=== PATIENT | male | born 1955 | race Caucasian/White ===

== ENCOUNTER 2019-09-21 11:05 | Outpatient (CLI) | payer MEDICARE, BC, OTHER, SELFPAY ==
[2019-09-21 12:31] VITALS: BMI 31.1
--- NOTE | 2019-09-21 12:38 | ECG_ITS ---
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 Baseline blood pressure noted to be 162/98 Patient exercised for on a 11 min 3 sec on standard Per protocol. Maximum Heart rate achieved was 160 which was 103% of 155. Then maximum blood pressure achieved was 236/118 mmHg. Max METS 13.5 Reason for, ending this test was achieving maximum heart rate. Patient did have sob symptoms during this procedure, improved during recovery Electrocardiogram Baseline normal sinus rhythm, Old anterior IL with no ST-T changes. Exercise EKG at peak exercise reveals sinus tachycardia with equal to or more then 1mm down sloping ST changes on two contiguous leads . No significant cardiac arrhythmias noted. Conclusions 1. Electrocardiographic component of this cardiac stress test is positive for cardiac ischemia 2. Normal Heart rate response , increased blood pressure response. 3 Adequate exercise capacity 4 Clinical correlation is requested-please consider cardiac stress testing with nuclear imaging if clinically indicated Electronically Signed On 09-21-2019 17:38:27 CDT by Vi Rehman [email or web address]
[2019-09-21 13:11] VITALS: BP 147/99; PULSE 97
== END 2019-09-21 11:06 | disposition home or self-care (01) ==
LOC: CDL 11:11
PROVIDERS: Family Provider Nurse Practitioner Family; Visit Provider Nurse Practitioner Family
DX: I25.10 Atherosclerotic heart disease of native coronary artery without angina pectoris (principal); Z86.79 Personal history of other diseases of the circulatory system
CPT/HCPCS: 93017

== ENCOUNTER 2019-10-25 10:28 | Outpatient (CLI) | payer MEDICARE, BC, SELFPAY ==
--- NOTE | 2019-10-25 11:00 | USCV_ITS ---
Omar Redding Age: 63 Gender: M : 1955 Exam Date: 10/25/2019 10:54 Ordering Phys: Melissa Rehman MD ([email or web address]) Technologist: Liyah Littlejohn Exam Location: [facility] [place] Indication: ABNORMAL STRESS TEST BP: / HR: 59 Rhythm: Sinus Technical Quality: Adequate MEASUREMENTS (Male / Female) Normal Values 2D ECHO LV Diastolic Diameter PLAX 6.1 cm 4.2 - 5.9 / 3.9 - 5.3 cm LV Systolic Diameter PLAX 5.6 cm LV Chamber Size 5.2 cm IVS Diastolic Thickness 1.5 cm 0.6 - 1.0 / 0.6 - 0.9 cm IVS Systolic Thickness 1.1 cm LVPW Diastolic Thickness 1.1 cm 0.6 - 1.0 / 0.6 - 0.9 cm LVPW Systolic Thickness 1.1 cm RV Chamber Size 3.4 cm LVOT Diameter 2.0 cm LV Ejection Fraction 2D Teich 17.5 % LV Ejection Fraction MOD 2C 65.9 % LV Ejection Fraction 2C AL 66.1 % LA Diameter 5.7 cm LA Width 4.0 cm LA Height 5.3 cm RA Width 3.4 cm RA Height 4.9 cm Aorta at Sinotubular Diameter 2.9 cm M-MODE LV Diastolic Diameter MM 6.7 cm 4.2 - 5.9 / 3.9 - 5.3 cm LV Systolic Diameter MM 5.2 cm LV Ejection Fraction MM Teich 43.7 % IVS Diastolic Thickness MM 0.8 cm 0.6 - 1.0 / 0.6 - 0.9 cm IVS Systolic Thickness MM 1.0 cm LVPW Diastolic Thickness MM 1.1 cm 0.6 - 1.0 / 0.6 - 0.9 cm LVPW Systolic Thickness MM 1.9 cm RV Diastolic Diameter MM 0.9 cm Aortic Annulus Diameter 2.9 cm LA Ao Ratio MM 2.0 MV E Point Septal Separation 1.6 cm DOPPLER AV Peak Velocity 118.0 cm/s LVOT Peak Velocity 37.0 cm/s AV Area Cont Eq vti 1.0 cm squared AV Area Cont Eq pk 1.0 cm squared MV Area PHT 5.8 cm squared Mitral E to A Ratio 0.9 MV E' Velocity 7.0 cm/s Mitral E to MV E' Ratio 11.1 Mitral E to LV E' Lateral Ratio 9.8 Mitral E to LV E' Septal Ratio 12.6 TR Peak Velocity 233.5 cm/s TR Peak Gradient 21.8 mmHg TR Mean Velocity 185.6 cm/s TR Mean Gradient 14.6 mmHg TR Velocity Time Integral 82.0 cm TV Peak E Velocity 77.0 cm/s PV Peak Velocity 64.0 cm/s RV Acceleration Time 0.1 s RV Ejection Time 0.3 s RV AcT/ET 0.3 FINDINGS Left Ventricle Moderately increased left ventricular cavity size. Moderately decreased left ventricular systolic function. There appeared to be anterior, septal and apical akinesis.left ventricular ejection fraction is estimated at 39 %. Grade I/IV diastolic dysfunction (abnormal relaxation filling pattern), normal to mildly elevated filling pressures. Right Ventricle Normal right ventricular size. RVSP could not be calculated due to incomplete tricuspid regurgitation velocity profile. Right Atrium The right atrium is normal in size. Left Atrium Mildly increased left atrial size. Mitral Valve Mildly thickened mitral valve. Mitral annular calcification. No mitral valve stenosis. No mitral valve regurgitation. Aortic Valve Aortic valve sclerosis without stenosis or regurgitation. Tricuspid Valve Structurally normal tricuspid valve without significant stenosis or regurgitation. Pulmonary artery systolic pressure is normal. Pulmonic Valve Structurally normal pulmonic valve without significant stenosis. There is no pulmonic regurgitation. Pericardium Normal pericardium without effusion. Aorta Normal ascending aorta dimension. CONCLUSIONS 1-Moderately increased left ventricular cavity size. Moderately decreased left ventricular systolic function. There appeared to be anterior, septal and apical akinesis.left ventricular ejection fraction is estimated at 39 %. Grade I/IV diastolic dysfunction (abnormal relaxation filling pattern), normal to mildly elevated filling pressures. 2-Normal right ventricular size. RVSP could not be calculated due to incomplete tricuspid regurgitation velocity profile. 3-Mildly thickened mitral valve. Mitral annular calcification. No mitral valve stenosis. No mitral valve regurgitation. 4-There is no pericardial effusion. 5-Right atrial pressure is around 5 mm of mercury. 6-No significant change since the prior echocardiogram study of 01/19/2014. Melissa Rehman MD (Electronically Signed) Final Date: 29 October 2019 18:12 S
== END 2019-10-25 10:29 | disposition home or self-care (01) ==
LOC: RAD 10:35
PROVIDERS: Family Provider Nurse Practitioner Family; Visit Provider Internal Medicine Cardiovascular Disease
DX: R94.39 Abnormal result of other cardiovascular function study (principal); I51.7 Cardiomegaly; I34.8 Other nonrheumatic mitral valve disorders
CPT/HCPCS: 93306

== ENCOUNTER 2019-11-13 13:29 | Emergency (ER) | payer MEDICARE, BC, SELFPAY ==
[2019-11-13 13:37] VITALS: BP 179/96; PULSE 75; RESP 17; TEMP 36.6; O2SAT 98; BMI 30.5
== END 2019-11-13 13:45 | disposition left against medical advice (07) ==
LOC: ER 14:55
PROVIDERS: Emergency Provider Physician Assistant; PCP Nurse Practitioner Family
DX: Z53.21 Procedure and treatment not carried out due to patient leaving prior to being seen by health care provider (principal)
CPT/HCPCS: 80048; 85025; 87635; 99281

== ENCOUNTER 2019-11-16 11:40 | Observation (INO) | payer MEDICARE, BC, SELFPAY ==
[2019-11-13 14:52] LABS: Hemoglobin 15.9 g/dL (11.7-16.6); Nucleated Red Blood Cells % 0 %; Red Cell Distribution Width 13.1 % (12.1-15.1)
[2019-11-13 14:56] LABS: Basophils # 0.1 10^3/uL (0.0-0.1); Basophils % 1.2 %; Eosinophils # 0.6 10^3/uL (0.0-0.8); Eosinophils % 7.1 %; Hematocrit 49.1 % (42.0-52.0); Lymphocytes # 2.9 10^3/uL (0.8-4.8); Mean Corpuscular HGB Conc 32.4 g/dL (30.0-36.0); Mean Corpuscular Hemoglobin 30.5 pg (28.0-34.0); Mean Corpuscular Volume 94.2 fL (80-94); Mean Platelet Volume 11.4 fL (7.4-10.4); Monocytes # 0.7 10^3/uL (0.2-0.9); Monocytes % 8.6 %; Neutrophils # 4.3 10^3/uL (1.8-7.7); Platelet Count 293 10^3/cmm (130-400); Red Blood Count 5.21 10^6/uL (4.1-5.3); White Blood Count 8.6 10^3/uL (4.0-10.0)
[2019-11-13 15:24] LABS: Blood Urea Nitrogen 19 mg/dL (8-23); Calcium 9.9 mg/dL (8.5-10.5); Carbon Dioxide 27 mmol/L (22-29); Chloride 101 mmol/L (98-107); Glucose 143 mg/dL (65-115); Osmolality Calculated 291 mOsm/kg (285-295); Sodium 141 mmol/L (136-145)
[2019-11-14 15:27] LABS: Quest SARS-CoV-2 RNA NOT DETECTED (NOT DETECTED)
[2019-11-15 10:28] VITALS: BMI 31.4
[2019-11-16] VITALS (10 sets, daily range): BP systolic 136–168; BP diastolic 80–101; PULSE 60–90; RESP 16–28; TEMP 36.3–37; O2SAT 93–98
[2019-11-16] MEDS: diphenhydrAMINE 50 mg Capsule PO (08:19)
--- NOTE | 2019-11-16 08:30 | XACV_ITS ---
Ht: 168 cm Wt: 88 kg BSA: 2.06 m2 Gender: Male : 1955 Any Known Allergies: Penicillins Exam Priority: Routine Procedure(s): Procedure Description: Diagnostic procedure Procedure Description: Venous Graft Catheterization Procedure Description: LEMUS Graft Catheterization Procedure Description: Coronary Angiography Diagnostic Cath Status: Elective Diagnostic Findings LM has 0% stenosis. pLAD: Severe 100% stenosis, LUCIANO: 0 flow. pCIRC: Mild 40% stenosis, LUCIANO: 3 flow. 1st OM: Severe 90% stenosis, LUCIANO: 2 flow. pRCA: Severe 99% stenosis, LUCIANO: 1 flow. mRCA: Severe 75% stenosis, LUCIANO: 1 flow. Three grafts visualized. LEMUS to dLAD: patent. SVG to 1st OM: patent. SVG to RPAV: 25% stenosis, LUCIANO: 3 flow. Coronary angiography shows right dominance. Indication for cholangiogram: Abnormal stress test/DOT physical. Conclusions There is severe coronary artery disease with three vessel disease. two grafts patent, and one graft diseased. Patient has prior CABG. Recommendations Continue current medical management and risk factor modification. Diagnostic RX Recommendation: medical therapy and/or counseling Pressures Phase:Rest AO : 170 mmHg / 92 mmHg ( 126 mmHg ) @ 5:13:00 AM 155 mmHg / 84 mmHg ( 114 mmHg ) @ 5:18:00 AM Clinical Evaluation EBL: 5mL-10mL Procedural Details Pre-Procedure Time Out. Identified patient by full name and date of as verbalized by the patient/guarantor. Does the consent match the physician's order: Yes. Accurate & Complete Informed Consent: Yes. Inpatient/Outpatient History & Physical on Chart: Yes. If H&P is completed, is and addenduem needed: Yes; If yes, is the addendum complete: Yes. Visualize and Verify Site with Patient/Guarantor: N/A. Relevant Radiology Images available: N/A. Pre-op teaching completed and patient verbalized understanding. The risks, benefits, and alternatives of sedation and/or procedure were discussed by physician. The patient agrees to continue. [facility] Clinical Fraility Score: 3: Managing Well. 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 Chest Pain Symptom Assessment: Atypical Angina. Procedure started. Cardiovascular Instability: No. Correct patient, site and procedure confirmed by cath team. Current diagnosis: Chest Pain. PERRLA. 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 Lungs clear x 5 lobes. IV Site on Arrival: 20 gauge in the left anticubital. Pre Procedural Pulses: bilateral dorsalis pedis was 3+. Pre Procedural Pulses: bilateral posterior tibial was 1+. Pre Procedural Pulses: right radial was 3+. Oxygen started at 2liters/min via nasal canula. bilateral groins was prepped with chloroprep then draped in the usual sterile fashion. right radial was prepped with chloroprep then draped in the usual sterile fashion. Physician notified. Patient's family unavailable. Equipment: 6F - Radial. Cardiac Cath Pack. ACIST Manifold Kit Model BT 2000. Heparinized Saline (2 units/mL), 1000 mL bag. Baseline sample Acquired. HR: 68 BPM. Current Diagnosis : Chest Pain. Physician arrived. Physician scrubbed in. Immediate Pre-Procedure Time Out. Correct Patient: Yes; Correct Procedure: Yes; Correct Site: Yes; Correct Patient Position: Yes; Correct Supplies: Yes; Dried Flammable Prep: Yes; Blood Products Available: N/A;. Lidocaine 1% infiltrated to the right groin. Arterial access obtained with micropuncture set. Inventory is JJ 6F 11cm Mary Grace Plus Sheath. A JJ 6F JL4 100cm Diagnostic Catheter was advanced over the wire and used for Left coronary angiography. Catheter out. A CRD 6F JR4 100cm Diagnostic Catheter was advanced over the wire and used for Right coronary angiography. Multiple views taken of left coronary artery. SVG's to OM visualized and patent. SVG's to PDA visualized and patent. LEMUS to LAD visualized. A Right femoral angiogram was performed to determine safe placement of closure device. A Perclose ([employer]) was successful obtaining hemostatsis at the Right Femoral artery insertion site. Perclose placed without complications. No signs or symptoms of hematoma noted. Sterile dressing applied per usual sterile fashion. Medication's Wasted: Lidocaine 1% = 10 mL. Medication's Wasted: Heparin = 1000 units. Total IV fluids: 300 mL. Fluoro: 4:30. Contrast type used: Omnipaque 300 mgI/mL, 500 mL bottle. [id number]. Post-op diagnosis: chest pain. Complications: none. Estimated blood loss: 5mL-10mL. Procedure completed. Post Procedure: Pulses reassessed and unchanged. No VTE prophylaxis required. PERRLA. 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 Patient transferred by bed to CPRU until ICU bed is available. Site: Right Femoral artery Sheath Size: 6 Fr Hemostasis Method: Perclose ([employer]) Hemostasis Success: Successful Procedure Medications Start: 10:03 AM Stop: 10:03 AM Medication: Versed Amount: 1 mg Route: I.V. Start: 10:03 AM Stop: 10:03 AM Medication: Fentanyl Amount: 50 mcg Route: I.V. Start: 10:14 AM Stop: 10:14 AM Medication: Versed Amount: 1 mg Route: I.V. Start: 10:14 AM Stop: 10:14 AM Medication: Fentanyl Amount: 50 mcg Route: I.V. I, the attending physician, have reviewed and verified all procedure medications. Yes, all medications given per verbal order History/Risk Factors Hypertension: Yes Dyslipidemia: Yes Peripheral Arterial Disease (PAD): No Myocardial Infarction (CT): No Obesity: No Renal Disease: No Tobacco Use: Never Prior Interventions PCI: No CABG: Yes Valve Surgery: No Report Signatures Finalized by:Melissa Rehman MD on 11/29/2019 5:58:54 PM
--- NOTE | 2019-11-16 10:30 | SUR.PHASEI ---
POST CATH NOTE/ RECOVERY NOTE Patient to CPRU-4 for recovery pending bed availability. Status post cardiac catheterization via the right femoral approach. No sheath, access was perclosed. No hematoma formation noted at this time. See v/s assessment sheet for details of assessments. Call light within reach. Informed to call for needs.
--- NOTE | 2019-11-16 12:47 | PC.NURSE ---
pt resting in bed. Complains of no pain or shortness of breath.
--- NOTE | 2019-12-06 18:23 | W.PM.OPSUD ---
Surgery/Procedure H&P Update DATE OF PROCEDURE: 11/16/2019 DATE H&P PERFORMED: 11/16/19 H&P UPDATE INFORMATION: I have reviewed H&P completed within last 30 days, I have examined patient prior to procedure and No changes to prior documentation PLANNED PROCEDURE: Operation Date: 11/16/19 08:30 Proposed Procedures p Cardiac Catheterization(Left) - Melissa Rehman MD PATIENT REASSESSED PRIOR TO SEDATION, WITH NO CHANGE NOTED: Yes PHYSICAL EXAM: alert, oriented x 3, clear to auscultation bilaterally and regular rate & rhythm AIRWAY EVAL/ANESTHESIA PLAN: normal airway, see other exam findings and ASA II
== END 2019-11-16 14:09 | disposition home or self-care (01) ==
LOC: ICU 12:36
PROVIDERS: Admitting Provider Internal Medicine Cardiovascular Disease; PCP Nurse Practitioner Family; Visit Provider Internal Medicine Cardiovascular Disease
DX: I25.10 Atherosclerotic heart disease of native coronary artery without angina pectoris (principal); Z95.1 Presence of aortocoronary bypass graft; I10 Essential (primary) hypertension; E78.5 Hyperlipidemia, unspecified
CPT/HCPCS: 12345; 80048; 85025; 87635; 93455; C1760; C1769; C1887; C1894; G0378; J1644; J2001; J2250; J3010; J7030; Q0163; Q9967

== ENCOUNTER → 2019-11-23 13:39 | Outpatient (BNVA) | payer MEDICARE, BC, SELFPAY | PROVIDERS: PCP Nurse Practitioner Family; Visit Provider Nurse Practitioner Family | DX: E78.5 Hyperlipidemia, unspecified (principal); I25.708 Atherosclerosis of coronary artery bypass graft(s), unspecified, with other forms of angina pectoris; Z95.5 Presence of coronary angioplasty implant and graft; Z98.890 Other specified postprocedural states | CPT/HCPCS: 80048 ==

== ENCOUNTER → 2021-01-28 11:24 | Outpatient (BNVA) | payer MEDICARE, BC, SELFPAY | PROVIDERS: PCP Nurse Practitioner Family; Visit Provider Nurse Practitioner Family | DX: L03.312 Cellulitis of back [any part except buttock and flank]; M25.50 Pain in unspecified joint; S30.860A Insect bite (nonvenomous) of lower back and pelvis, initial encounter; W57.XXXA Bitten or stung by nonvenomous insect and other nonvenomous arthropods, initial encounter; M10.9 Gout, unspecified | CPT/HCPCS: 84550; 85025; 86618; 86666; 86757 ==

== ENCOUNTER 2021-09-09 12:09 | Outpatient (CLI) | payer MEDICARE, BC, SELFPAY ==
--- NOTE | 2021-09-09 12:10 | ECG_ITS ---
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 EKG showed sinus rhythm, right axis deviation with [] normal ST-Ts. [] . ??? The patient exercised for 12 minutes and 1 second on a Modified Per protocol. Patient attained a maximum heart rate of [] beats per minute( [] % of the maximum predicted heart rate) with a blood pressure at the peak exercise of 174/107 mm Hg. The EKG at the peak exercise revealed []. Patient did [not have any chest pain or any significant arrhythmis with the exercise]??? During the recovery phase, there were no new changes. [] ??? Blood pressure at the end of the recovery phase was 155/88 mm Hg with a heart rate of 104 beats per minute. ??? CONCLUSION: 1. [Normal] EKG response to treadmill exercise [] 2. [No exercise-induced chest pain or cardiac arrhythmia] 3. [] exercise tolerance, attained a maximum of 13.5 METs. Maximum VO2 of 47.3 ml/kg/min. 4. Baseline [hypertension/normal blood pressure] with [hypertensive/normal] response to exercise. Electronically Signed On 09-17-2021 8:35:07 CDT by Meredith Gonzalez M.D. [id number]
[2021-09-09 12:50] VITALS: BP 155/88; PULSE 96
== END 2021-09-09 12:10 | disposition home or self-care (01) ==
LOC: CDL 12:09
PROVIDERS: PCP Nurse Practitioner Family; Visit Provider Internal Medicine Cardiovascular Disease
DX: I25.10 Atherosclerotic heart disease of native coronary artery without angina pectoris (principal); R06.02 Shortness of breath
CPT/HCPCS: 93017

== ENCOUNTER 2021-09-26 09:22 | Outpatient (CLI) | payer MEDICARE, BC, SELFPAY ==
[2021-09-26 09:56] VITALS: BMI 29.3
--- NOTE | 2021-09-26 09:56 | NMCV_ITS ---
NM jeovanny perf SPECT r/s* [id number] Omar Redding Age: 65 Gender: M : 1955 Exam Date: 09/26/2021 09:56 Ordering Phys: Meredith Gonzalez MD ([email or web address]) Technologist: RACHID Boles Exam [facility]: 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 Images obtained in supine and prone position. SPECT RESULTS Technical Quality: Excellent Raw Data Analysis: Normal Image Corrections: No attenuation or motion correction applied Summed Stress Score: 26 Summed Rest Score: 27 Summed Difference Score: 0 PERFUSION FINDINGS Large sized perfusion abnormality of severe severity of basal to apical anterior, basal to mid anteroseptal, apical septal, apical lateral apical inferior and apical hawkins on rest and stress images. FUNCTIONAL RESULTS (calculated via Gated SPECT) Stress Image LV EF (%): 31 Stress EDV (mL):249 TID: 1.04 Stress ESV (mL):172 FUNCTIONAL FINDINGS: The left ventricle is dilated. Transient Ischemia Dilatation of 1. The left ventricular ejection fraction is moderately reduced with a value of 31%. There is global hypokinesis more pronounced in anterior anteroseptal and apical hawkins. Abnormal septal motion. Markedly increased end-diastolic end-systolic volumes. IMPRESSIONS 1. Large sized fixed perfusion abnormality of severe severity of basal to apical anterior, basal to mid anteroseptal, apical septal, apical lateral apical inferior and apical hawkins. 2. The left ventricular ejection fraction is moderately reduced with a value of 31%. 3. There is global hypokinesis more pronounced in anterior anteroseptal and apical hawkins. 4. No significant coronary ischemia based on the study. Meredith Gonzalez MD (Electronically Signed) Final Date: 29 September 2021 14:03 S
--- NOTE | 2021-09-26 09:56 | ECG_ITS ---
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 Interpretive Statements NAME OF STUDY: LEXISCAN SESTAMIBI STRESS TEST INDICATION: Abnormal EKG PROCEDURE: At the baseline, the blood pressure was 128/84 mmHg, oxygen saturation 96% with a heart rate of 53 bpm. The electrocardiogram showed sinus bradycardia, normal axis. Possible old anteroseptal infarct. Nonspecific ST depression and T wave changes. The Lexiscan was infused over a period of 20 seconds. A total of 0.4 milligrams of Lexiscan was infused. The stress phase was continued for a total of 5 minutes. Heart rate at the end of the stress phase was 89 bpm, oxygen saturation 96% with a blood pressure of 151/91 mmHg. The EKG at the peak infusion revealed sinus rhythm with frequent isolated PVCs. 1/[address] depression in inferolateral leads. Sestamibi was injected 20 seconds after the Lexiscan infusion. The study was terminated due to protocol completion. Blood pressure at the end of the recovery phase was 158/92 mmHg, oxygen saturation 95% with a heart rate of 83 beats per minute. CONCLUSION: 1. Equivocal EKG changes with the LexiScan infusion due to baseline ST-T wave changes. 2. No LexiScan induced chest pain or cardiac arrhythmia. 3. Normal blood pressure and heart rate response. 4. Sestamibi/sestamibi perfusion scan pending; see separate report. Electronically Signed On 09-29-2021 12:46:21 CDT by Meredith Gonzalez M.D. [id number]
[2021-09-26 11:05] VITALS: BP 158/92; PULSE 86
[2021-09-26] MEDS: regadenoson 0.4 Mg/5 ml Syringe IVP (11:07)
== END 2021-09-26 09:23 | disposition home or self-care (01) ==
LOC: CDL 09:22
PROVIDERS: PCP Nurse Practitioner Family; Visit Provider Internal Medicine Cardiovascular Disease
DX: R94.31 Abnormal electrocardiogram [ECG] [EKG] (principal)
CPT/HCPCS: 78452; 93017; A9500; J2785

== ENCOUNTER 2022-02-11 06:59 | Outpatient (CLI) | payer MEDICARE, BC, SELFPAY ==
--- NOTE | 2022-02-11 07:15 | US_ITS ---
WS: [id number] Complete ABDOMINAL ULTRASOUND HISTORY: K76.9 - Liver disease, unspecified COMPARISON: CT 12/09/2021 Liver: 16.3 cm in length. Liver is normal size and echogenicity with no mass or intrahepatic dilatati on. Portal Vein: Normal hepatopetal flow with monophasic waveform. Gallbladder: Normally distended with no gallstones, wall thickening or pericholecystic fluid. Gallbladder wall thickness: 0.3 cm. Pancreas: Not visualized. CBD: 0.5 cm. Right kidney: 11.9 cm x 6.2 cm x 6.8 cm. No mass, cortical thickening or hydronephrosis. Left kidney: 11.2 cm x 4.7 cm x 4.7 cm. No mass, cortical thickening or hydronephrosis. Spleen: Poorly visualized spleen. Spleen is lobulated findings are consistent with a prior splenic in farct. Mild atherosclerosis aorta. No ascites. US/US abdomen complete* [id number] IMPRESSION: 1. No liver mass is identified. 2. Normal gallbladder. 3. Prior splenic infarct. 4. No ascites.
== END 2022-02-11 07:00 | disposition home or self-care (01) ==
PROVIDERS: PCP Nurse Practitioner Family; Visit Provider Nurse Practitioner Family
DX: K76.9 Liver disease, unspecified (principal)
CPT/HCPCS: 76700; 76705

== ENCOUNTER 2022-02-25 07:41 | Outpatient (CLI) | payer MEDICARE, BC, SELFPAY ==
--- NOTE | 2022-02-25 07:51 | XR_ITS ---
WS: [id number] KUB, AP view, 02/25/2022 Clinical Data: N20.0 - Calculus of kidney Comparison: CT abdomen pelvis, 12/09/2021. Findings: No abnormal intraabdominal masses are seen. There is no dilatated small bowel or evidence of obstruct ion. There are calcifications overlying the right kidney but they may be within fecal material. There is a phlebolith in the right side of the true pelvis. There is a dextroscoliosis. XR/XR KUB [id number] Impression: Possible right renal calculi.
== END 2022-02-25 07:42 | disposition home or self-care (01) ==
LOC: RAD 07:46
PROVIDERS: PCP Nurse Practitioner Family; Visit Provider Urology
DX: N20.0 Calculus of kidney (principal)
CPT/HCPCS: 74018; 81003; 99203

== ENCOUNTER → 2022-03-03 14:09 | Outpatient (BNVA) | payer MEDICARE, BC, SELFPAY | PROVIDERS: PCP Nurse Practitioner Family; Visit Provider Internal Medicine Critical Care Medicine | DX: R91.1 Solitary pulmonary nodule (principal) | CPT/HCPCS: 99203 ==

== ENCOUNTER 2022-03-17 12:56 | Outpatient (CLI) | payer MEDICARE, BC, SELFPAY ==
--- NOTE | 2022-03-17 13:03 | XRR_ITS ---
PROCEDURE INFORMATION: Exam: XR Abdomen Exam date and time: 03/17/2022 1:10 PM Age: 66 years old Clinical indication: Condition or disease; Kidney or ureter condition; Calculus (stone) in kidney; Prior surgery; Surgery type: Cabg; Additional info: julia Sena 03/17/22 @ 12:45 pm appt to follow TECHNIQUE: Imaging protocol: Radiologic exam of the abdomen. Views: Frontal supine view of the abdomen. 1 View. COMPARISON: CR XR KUB [id number] 02/25/2022 7:54 AM FINDINGS: Gastrointestinal tract: Normal. No bowel dilation. Organs: caliceal stones are present in the upper and lower pole of the right kidney measuring 7 mm, and 10.7 mm x 9.7 mm respectively. These findings were present on prior examination and appears similar Bones/joints: Unremarkable. XR/XR KUB [id number] IMPRESSION: 1. No acute GI abnormality. 2. Stable caliceal stones right kidney
== END 2022-03-17 12:57 | disposition home or self-care (01) ==
LOC: RAD 12:57
PROVIDERS: PCP Nurse Practitioner Family; Visit Provider Urology
DX: N20.0 Calculus of kidney (principal)
CPT/HCPCS: 74018; 99214

== ENCOUNTER 2022-03-23 07:12 | Day surgery (SDC) | payer MEDICARE, BC, SELFPAY ==
[2022-03-20 12:07] VITALS: BMI 27.4
[2022-03-23] VITALS (9 sets, daily range): BP systolic 138–159; BP diastolic 80–95; PULSE 51–74; RESP 16–24; TEMP 36.1–37; O2SAT 93–98
--- NOTE | 2022-03-23 05:18 | P.HPUD_ITS ---
Surgery/Procedure H&P Update DATE OF PROCEDURE: March 23, 2022 DATE H&P PERFORMED: 03/17/22 H&P UPDATE INFORMATION: I have reviewed H&P completed within last 30 days, I have examined patient prior to procedure, No changes to prior documentation and H&P is in [facility] EMR on date indicated PLANNED PROCEDURE: Operation Date: 03/23/22 08:25 Proposed Procedures p EXTRACORPOREAL SHOCKWAVE LITHOTRIPSY CYSTOSCOPY RIGHT POSSIBLE RETROGRADE URETEROSCOPY LASER [id number],N20.0(Not Applicable) - Truman Frye MD s ESWL(Not Applicable) - Truman Frye MD s Retrograde Pyelogram(Not Applicable) - Truman Frye MD s Ureteroscopy(Not Applicable) - Truman Frye MD s Ureteral Stent Placement(Not Applicable) - Truman Frye MD
--- NOTE | 2022-03-23 07:18 | XRR_ITS ---
PROCEDURE INFORMATION: Exam: XR Abdomen Exam date and time: 03/23/2022 7:23 AM Age: 66 years old Clinical indication: Screening exam; Other: Preop right eswl; Patient HX: RT. Renal stone TECHNIQUE: Imaging protocol: Radiologic exam of the abdomen. Views: Frontal supine view of the abdomen. 1 View. COMPARISON: CR XR KUB [id number] 03/17/2022 1:10 PM FINDINGS: Gastrointestinal tract: There is suggestion of mural thickening of a small-bowel loop in the left hemiabdomen. Nonobstructive bowel gas pattern. Vasculature: Phlebolith in the right hemipelvis. Bones/joints: Unremarkable. Other findings: Similar appearance of a 6 mm calcification projecting over the upper pole of the right kidney and a 9 mm calcification projecting over the lower pole of the right kidney. XR/XR KUB [id number] IMPRESSION: 1. Similar appearance of right renal calculi. 2. There is suggestion of mural thickening of a small-bowel loop in the left hemiabdomen, which may reflect a nonspecific enteritis.
--- NOTE | 2022-03-23 07:54 | ECG_ITS ---
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 Measurements Intervals [place] Rate: 54 P: 36 NC: 290 QRS: -6 QRSD: 108 T: 72 QT: 416 QTc: 397 Interpretive Statements SINUS BRADYCARDIA WITH FIRST DEGREE AV BLOCK MINIMAL VOLTAGE CRITERIA FOR LVH, CONSIDER NORMAL VARIANT [MEETS CRITERIA IN ONE OF: R(aVL), S(V1), R(V5), R(V5/V6)+S(V1)] POSSIBLE ANTERIOR MYOCARDIAL INFARCTION , OF INDETERMINATE AGE [30 ms Q WAVE IN V3/V4, OR R < 0.2 mV IN V4] No previous ECG available for comparison Electronically Signed On 03-23-2022 18:35:21 CDT by Clint Tellez M.D. [id number]
[2022-03-23 08:00] LABS: Basophils # 0.1 10^3/uL (0.0-0.1); Eosinophils # 0.4 10^3/uL (0.0-0.8); Eosinophils % 5.7 %; Hematocrit 54.8 % (42.0-52.0); Hemoglobin 18.3 g/dL (11.7-16.6); Lymphocytes # 2.7 10^3/uL (0.8-4.8); Lymphocytes % 34.4 %; Mean Corpuscular HGB Conc 33.4 g/dL (30.0-36.0); Mean Corpuscular Hemoglobin 31.4 pg (28.0-34.0); Mean Corpuscular Volume 94.2 fl (80-94); Mean Platelet Volume 12.2 fL (7.4-10.4); Monocytes # 0.5 10^3/uL (0.2-0.9); Monocytes % 6.7 %; Neutrophils # 4.05 10^3/uL (1.8-7.7); Neutrophils % 52.1 %; Nucleated Red Blood Cells % 0 %; Platelet Count 200 10^3/cmm (130-400); Red Blood Count 5.82 10^6/uL (4.1-5.3); White Blood Count 7.8 10^3/uL (4.0-10.0)
--- NOTE | 2022-03-23 08:01 | P.ANESASSM_ITS ---
Pre-Anesthetic Assessment Height/Weight: Height 1.68 m Weight 77.111 kg Temp Pulse Resp BP Pulse Ox O2 Del Method 97.1 F L 58 L 18 148/82 98 03/23/22 07:33 03/23/22 07:33 03/23/22 07:33 03/23/22 07:33 03/23/22 07:33 03/23/22 07:33 Preop Diagnosis: Right renal calculi Operation Date: 03/23/22 08:25 Proposed Procedures p EXTRACORPOREAL SHOCKWAVE LITHOTRIPSY CYSTOSCOPY RIGHT POSSIBLE RETROGRADE URETEROSCOPY LASER 85155 07997,N20.0(Not Applicable) - Truman Frye MD s ESWL(Not Applicable) - Truman Frye MD s Retrograde Pyelogram(Not Applicable) - Truman Frye MD s Ureteroscopy(Not Applicable) - Truman Frye MD s Ureteral Stent Placement(Not Applicable) - Truman Frye MD Familial anesthetic complications: None Was Beta Kwesi taken within 24 hours: N/A Was Clonidine taken within 24 hours: N/A Last intake: Intake Last Liquid Date 03/22/22 Last Liquid Time 02:30 Last Solid Date 03/21/22 Last Solid Time 16:00 Social No alcohol and No tobacco Exam alert, oriented x 3, clear to auscultation bilaterally and regular rate & rhythm Airway Mallampati: Class II Dentition: other (missing) Pulmonary Exertional Dyspnea CV/HEM Coronary Artery Disease (cabg 2013), Congestive Heart Failure and Hypertension Ef 33% Metabolic Hyperlipidemia Anesthetic Plan ASA status: 3 Anesthesia: General Risk of > 500 ml blood loss (7ml/kg in children): No Medications/Allergies Home Medications Medication Instructions Recorded Confirmed Last Taken Type herbal drugs tab PO 11/18/20 03/17/22 Unknown History tamsulosin 0.4 mg capsule 0.4 mg PO .at bedtime #90 caps 02/26/22 03/23/22 03/21/22 Rx Allergies Allergy/AdvReac Type Severity Reaction Status Date / Time Penicillins Allergy unknown Verified 03/17/22 13:27 [facility] Anesthesia Medical History CAD (coronary artery disease) of artery bypass graft CHF NYHA class II (symptoms with moderately strenuous activities) HLD (hyperlipidemia) HTN (hypertension) Hyperlipidemia associated with type 2 diabetes mellitus LV dysfunction Surgical History History of lithotripsy Hx of right coronary artery stent placement S/P Achilles tendon repair S/P CABG x 3 S/P knee surgery Bilateral S/P shoulder surgery Bilateral Family History Mother , at age 78 History of heart bypass surgery History of partial surgical removal of colon Father History of kidney stones Other CAD (coronary artery disease) Social History Smoking and tobacco status: never smoked Alcohol intake: never Adopted: No Lives independently: Yes Household members: spouse Marital status: Current occupational status: employed and retired History of recent travel: No Data Anesthesia : 03/23/22 07:44 Short CBC 03/23/22 Range/Units 07:44 WBC 7.8 (4.0-10.0) 10^3/uL Hgb 18.3 H (11.7-16.6) g/dL Hct 54.8 H (42.0-52.0) % MCV 94.2 H (80-94) fl Plt Count 200 (130-400) 10^3/cmm Neut % (Auto) 52.1 % Neut # (Auto) 4.05 (1.8-7.7) 10^3/uL Cardiac Studies: Echocardiogram Ultrasound 10/25/19 Sestamibi Stress Test (Cardiology) 09/26
[2022-03-23] MEDS: sodium chloride 0.9% 1,000 ML 30 ML IV (08:05)
--- NOTE | 2022-03-23 08:46 | PM.OP ---
Operative Report Date of procedure: March 23, 2022 Pre-op diagnosis: Right renal calculi Post-op diagnosis: Right renal calculi Procedure done: 1. Cystoscopy, right ureteral stent placement 2. 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 Redding is a delightful 66-year-old white male who has had some intermittent right renal colicky type pain described as severe. Reminds him of previous stones. He was evaluated in [place] when he was out of state for work and was found to have a dilated collecting system with a right renal pelvic stone that was in a position of no obstruction. On follow-up here after returning back to the state the stone was seen to be in the right lower pole calyx. Initially he chose to approach this conservatively but had had at least another episode of typical renal colic and chose instead to treat it. Admitted now for ESWL with stent. Procedure: After routine preoperative evaluation examination and obtaining of informed consent he was taken to the operating suite on 03/23/2022 where general anesthesia was administered without difficulty after appropriate timeout was performed, SCDs confirmed to be functioning, preoperative antibiotics administered, beta-axel protocol confirmed. Prepped and draped in the usual sterile fashion in dorsolithotomy position paying careful attention to avoiding pressure points. 21 Sri Lankan cystoscope with 30 degree lens was introduced into the urethra meatus and advanced into the bladder to videoscopy. The bladder was systematically examined and found to be within normal limits. No stones seen. Flexible tip guidewire was then advanced up the right ureter easily into the renal pelvis and a 6 Sri [place]ankan by 26 cm double-pigtail stent was passed over the guidewire through the cystoscope into appropriate position as confirmed via fluoroscopy and cystoscopy. The bladder was drained and the scope was removed. He was then repositioned in supine position on the Dornier unit such that the stone was located at the focal point utilizing biplanar fluoroscopy with the shock head positioned posteriorly. Shockwave therapy was initiated and intensity of 1 and a rate of 60 and slowly increased. After about 300 shocks a several minute pause was conducted. The intensity was slowly increased to 8. The stone started to demonstrate change in approximately 1000 shocks. By the completion of the procedure it was fairly dramatically changed. He tolerated procedure well without complications and was awakened in the operating room and returned to the recovery room in stable condition. PLANS: 1. Anticipate discharge from outpatient surgery 2. Follow-up next week with KUB for reevaluation and possible stent removal or planning for subsequent retreatment
[2022-03-23] MEDS: levofloxacin-dextrose 5 % 500 MG/100 ML PREMIX 100 MG IV (08:55)
--- NOTE | 2022-03-23 10:18 | SUR.PHASEI ---
1010 PT TO PACU 4 PT AWAKES TO VOICE, WITH GOOD RESP EFFORT, PT TRYING TO RUB EYES AND NOSE, PT ASSISTED TO NOT RUB EYES, MONITOR SR WITH NO ECTOPY, VSS IV TO LT FA #20 WITH NS 300ML NS AT KVO RATE PER GRAVITY. , PT ID BRACELET TO RT WRIST , PT ID'D WITH 2 IDENTIFIERS, PT HAS APPROX 4 CENTIMETERS DIAMETER WITH REDNESS AND SMALL PETECHIAE NOTED. MONITOR SR WITH NO ECTOPY NOTED.BILAT SCDS ON.
[2022-03-23] MEDS: HYDROcodone-acetaminophen 5-325 mg Tablet 1 TAB PO (11:00)
--- NOTE | 2022-03-23 14:12 | ANE.PACU2 ---
Inpatient post-anesthesia follow up: Airway intact: Yes Vital signs: Temperature 97.0 F Pulse Rate 59 Respiratory Rate 16 Blood Pressure 148/80 Pulse Oximetry 96 Oxygen Delivery Me thod Room Air Oxygen Flow Rate 8 Fraction of Inspir ed Oxygen Hydration adequate: Yes Nausea and vomiting: No Pain level: 1 Mental status: Baseline
== END 2022-03-23 11:18 | disposition home or self-care (01) ==
PROVIDERS: Anesthesiology; PCP Nurse Practitioner Family; Visit Provider Urology
PROC: 0TJB8ZZ Inspection of Bladder, Via Natural or Artificial Opening Endoscopic (ICD-10-PCS; CPT 52000; principal; 2022-03-23 08:15)
PROC: (CPT 50590; 2022-03-23 08:15)
PROC: (CPT 74420; 2022-03-23 08:15)
PROC: 0TJ98ZZ Inspection of Ureter, Via Natural or Artificial Opening Endoscopic (ICD-10-PCS; CPT 52351; 2022-03-23 08:15)
PROC: (CPT 50605; 2022-03-23 08:15)
DX: N20.0 Calculus of kidney (principal); I25.10 Atherosclerotic heart disease of native coronary artery without angina pectoris; Z95.1 Presence of aortocoronary bypass graft; I11.0 Hypertensive heart disease with heart failure; I50.9 Heart failure, unspecified; E78.5 Hyperlipidemia, unspecified; Z95.5 Presence of coronary angioplasty implant and graft
CPT/HCPCS: 50590; 52332; 36415; 74018; 85025; 93005; C2625; J1100; J1956; J2405; J2704; J3010; J3490; J7030

== ENCOUNTER 2022-03-30 14:32 | Outpatient (CLI) | payer MEDICARE, BC, SELFPAY ==
--- NOTE | 2022-03-30 15:06 | XR_ITS ---
WS: [id number] Exam: XR KUB [id number] Date/Time of Exam: 03/30/2022 3:24 PM Reason For Exam: stone No bowel obstruction or free air. A right-sided ureteral catheter is in place appearing to be in appr opriate location. Calcifications are visualized over both kidneys and apparently represent known conrado l stones. No sign of organ enlargement. Bony structures are intact. Mild dextroscoliosis the lumbar s pine. Nonspecific bilateral pelvic calcifications. XR/XR KUB [id number] IMPRESSION: 1. Right-sided ureteral catheter appearing to be in satisfactory location. 2. Calcification superimpose both kidneys and apparently represent known renal stones.
== END 2022-03-30 14:33 | disposition home or self-care (01) ==
LOC: RAD 14:35
PROVIDERS: PCP Nurse Practitioner Family; Visit Provider Urology
DX: N20.0 Calculus of kidney (principal); Z96.0 Presence of urogenital implants
CPT/HCPCS: 74018; 81003; 99024

== ENCOUNTER 2022-04-07 10:30 | Outpatient (CLI) | payer MEDICARE, BC, SELFPAY ==
--- NOTE | 2022-04-07 10:30 | CT_ITS ---
WS: [id number] CT CHEST WITHOUT INTRAVENOUS CONTRAST HISTORY: Pulmonary nodule TECHNIQUE: Contiguous 5 mm axial imaging performed on the thorax. Coronal and sagittal reformats are submitted. All CT scans at [facility] use at least one of these dose optimization techniques: automated exposure control; mA and/or kV adjustment per patient size (includes targeted exams where dose is matched to clinical indication); or iterative reconstruction. CONTRAST: None DLP: 689.32 mGy.cm COMPARISON: 12/09/2021, 12/22/2011 Lungs and central airway: Recently described nodule at the LEFT lung base measures 5 mm. No change si nce 2011. There are a few additional scattered pulmonary nodules associated with the fissures. These are typically benign intrapulmonary lymph nodes. No new mass. Pleura: No effusion. Heart and pericardium: Moderately enlarged heart. No pericardial effusion. Mediastinum and judith: No adenopathy identified. Prior CABG. Vessels: Mild atherosclerosis aorta. Moderate coronary artery calcifications. Chest wall and lower neck: No soft tissue masses. Upper abdomen: Small hiatal hernia. 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 Nonobstructing calc ifications upper pole of each kidney. Osseous structures: Mild thoracic spondylitic changes. CT/CT chest wo con [id number] IMPRESSION: 1. Largest pulmonary nodule at the LEFT lung base measures 5 mm and stable sin ce 2011. 2. Additional RIGHT intrapulmonary nodules along the fissures which are statis tically benign. 3. Chronic emphysema. 4. Prior CABG.
== END 2022-04-07 10:31 | disposition home or self-care (01) ==
PROVIDERS: PCP Nurse Practitioner Family; Visit Provider Internal Medicine Critical Care Medicine
DX: R91.1 Solitary pulmonary nodule (principal); J43.9 Emphysema, unspecified; Z95.1 Presence of aortocoronary bypass graft; I25.708 Atherosclerosis of coronary artery bypass graft(s), unspecified, with other forms of angina pectoris; I11.0 Hypertensive heart disease with heart failure; I50.9 Heart failure, unspecified; E11.69 Type 2 diabetes mellitus with other specified complication; E78.5 Hyperlipidemia, unspecified
CPT/HCPCS: 71250; 99214

== ENCOUNTER 2022-04-09 07:11 | Outpatient (CLI) | payer MEDICARE, BC, SELFPAY ==
--- NOTE | 2022-04-09 07:38 | XR_ITS ---
WS: [id number] XR KUB [id number] REASON FOR EXAM: STONES FINDINGS: Properly positioned right ureteral calculus. There are multiple right intrarenal calculi. Position of these calculi altered compared to 03/30/2022 however the calculi remain intrarenal. No calculi identified along the course of the right ureteral stent. XR/XR KUB [id number] IMPRESSION: Right ureteral stent and right renal calculi as above.
== END 2022-04-09 07:12 | disposition home or self-care (01) ==
LOC: RAD 07:15
PROVIDERS: PCP Nurse Practitioner Family; Visit Provider Urology
DX: N20.1 Calculus of ureter (principal); Z96.0 Presence of urogenital implants; N20.9 Urinary calculus, unspecified; Z98.890 Other specified postprocedural states; R39.9 Unspecified symptoms and signs involving the genitourinary system; R91.8 Other nonspecific abnormal finding of lung field
CPT/HCPCS: 74018; 99024; 99213; 99214

== ENCOUNTER 2022-04-13 06:36 | Day surgery (SDC) | payer MEDICARE, BC, SELFPAY ==
[2022-04-13] VITALS (9 sets, daily range): BP systolic 132–154; BP diastolic 67–94; PULSE 54–86; RESP 17–21; TEMP 36.1–36.6; O2SAT 94–99
--- NOTE | 2022-04-13 06:57 | XR_ITS ---
WS: [id number] KUB, 04/13/2022 Clinical Data: Preop right ESWL Comparison: KUB, 04/09/2022 Findings: The right ureteral stent remains in the same position. No abnormal intraabdominal masses are seen. There is no dilatated small bowel or evidence of obstruct ion. There are multiple right renal calculi. There may be a left renal calculus. XR/XR KUB [id number] Impression: No change in right ureteral stent and right renal calculi.
--- NOTE | 2022-04-13 07:21 | ANES.PREANE2 ---
Pre-Anesthetic Assessment Height/Weight: Height 1.68 m Weight 77.111 kg Temp Pulse Resp BP Pulse Ox O2 Del Method 97.0 F L 58 L 18 141/79 97 04/13/22 07:14 04/13/22 07:14 04/13/22 07:14 04/13/22 07:14 04/13/22 07:14 04/13/22 07:14 Preop Diagnosis: Residual right renal calculus fragments Operation Date: 04/13/22 08:20 Proposed Procedures p Extracorporeal shockwave lithotripsy 43345(Not Applicable) - Truman Frye MD Familial anesthetic complications: none Was Beta Kwesi taken within 24 hours: N/A Was Clonidine taken within 24 hours: N/A Last intake: > 8hrs Social No alcohol and No tobacco Exam alert, oriented x 3, clear to auscultation bilaterally and regular rate & rhythm Airway Mallampati: Class II Dentition: chipped and other (missing) CV/HEM Coronary Artery Disease, Congestive Heart Failure (Class II, EF 31%) and Hypertension CABG in 2013, 2 patent grafts, 1 with CAD Stress test 09/23 CONCLUSION: 1. [Normal] EKG response to treadmill exercise [] 2. [No exercise-induced chest pain or cardiac arrhythmia] 3. [] exercise tolerance, attained a maximum of 13.5 METs. Maximum VO2 of 47.3 ml/kg/min. 4.? Baseline [hypertension/normal blood pressure] with [hypertensive/normal] response to exercise. sestamibi 09/23 1. Equivocal EKG changes with the LexiScan infusion due to baseline ST-T wave changes. 2. No LexiScan induced chest pain or cardiac arrhythmia. 3. Normal blood pressure and heart rate response. 4. Sestamibi/sestamibi perfusion scan pending; see separate report. Perfusion scan 09/23 IMPRESSIONS ?1. Large sized fixed perfusion abnormality of severe severity of basal to ?apical anterior, basal to mid anteroseptal, apical septal, apical lateral ?apical inferior and apical hawkins. ?2. The left ventricular ejection fraction is moderately reduced with a value of ?31%. ?3. There is global hypokinesis more pronounced in anterior anteroseptal and ?apical hawkins. ?4.? No significant coronary ischemia based on the study. kidney stones Hepatic liver nodule Anesthetic Plan ASA status: 3 Anesthesia: General Risk of > 500 ml blood loss (7ml/kg in children): No Medications/Allergies Home Medications Medication Instructions Recorded Confirmed Last Taken Type herbal drugs 1 tab PO DAILY 11/18/20 04/10/22 Unknown History tamsulosin 0.4 mg capsule 0.4 mg PO .at bedtime #90 caps 02/26/22 04/10/22 03/21/22 Rx hydrocodone 5 mg-acetaminophen 325 1 tab PO Q8H PRN pain #15 tabs 03/23/22 04/10/22 Unknown Rx mg tablet Allergies Allergy/AdvReac Type Severity Reaction Status Date / Time Penicillins Allergy unknown Verified 04/09/22 10:17 REPLACED BY [facility] Anesthesia Medical History CAD (coronary artery disease) of artery bypass graft CHF NYHA class II (symptoms with moderately strenuous activities) HLD (hyperlipidemia) HTN (hypertension) Hyperlipidemia associated with type 2 diabetes mellitus LV dysfunction Status post extracorporeal shock wave therapy Urolithiasis Surgical History History of lithotripsy Hx of right coronary artery stent placement S/P Achilles tendon repair S/P CABG x 3 S/P knee surgery Bilateral S/P shoulder surgery Bilateral S/P ureteral stent placement Family History Mother , at age 78 History of heart bypass surgery History of partial surgical removal of colon Father History of kidney stones Other CAD (coronary artery disease) Social History Smoking and tobacco status: never smoked Alcohol intake: never Adopted: No Lives independently: Yes Household members: spouse Marital status: Current occupational status: employed and retired History of recent travel: No Data Anesthesia Cardiac Studies: Echocardiogram Ultrasound 10/25/19 Sestamibi Stress Test (Cardiology) 09/26/21
--- NOTE | 2022-04-13 07:24 | W.PM.OPSUD ---
Surgery/Procedure H&P Update DATE OF PROCEDURE: April 13, 2022 DATE H&P PERFORMED: 04/09/22 H&P UPDATE INFORMATION: I have reviewed H&P completed within last 30 days, I have examined patient prior to procedure, No changes to prior documentation and H&P is in [facility] [place] on date indicated CHANGES TO PREVIOUS DOCUMENTATION: Stone fragments still present on today's KUB PREOP DIAGNOSIS: Residual right renal calculus fragments PLANNED PROCEDURE: Operation Date: 04/13/22 08:20 Proposed Procedures p Extracorporeal shockwave lithotripsy 99923(Not Applicable) - Truman Frye MD
[2022-04-13] MEDS: sodium chloride 0.9% 1,000 ML 30 ML IV (07:42)
[2022-04-13] MEDS: levofloxacin-dextrose 5 % 500 MG/100 ML PREMIX 100 MG IV (08:59)
--- NOTE | 2022-04-13 10:06 | PM.OP ---
Operative Report Date of procedure: April 13, 2022 Pre-op diagnosis: Residual right renal calculus fragments Post-op diagnosis: Residual right renal calculus fragments Procedure done: 1. 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 2500 shocks administered with good change. Brief History: Mr. Redding is a delightful 66-year-old white male with a symptomatic right renal pelvic stone migrating [id number] from the UPJ who underwent about 3 weeks ago stent placement and ESWL. The stone broke up but still had some fairly moderate size fragments felt to be marginal regarding passage. Especially in bulk the concern was potential for [place]strasse and therefore he was offered prior to stent removal a retreatment of the stone cluster versus taking the stent out. 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 Procedure: After routine preoperative evaluation examination and obtaining of informed consent he was taken to the operating suite on 04/13/2022 where general anesthesia was administered without difficulty after appropriate timeout was performed, SCDs confirmed to be functioning, preoperative antibiotics administered, beta-axel protocol confirmed. Positioned on the Dornier unit with shock head positioned posteriorly. Stone cluster was easily identified and focused upon. Shockwave therapy was initiated and intensity of 1 advanced intensity of 6. Rate was 60 throughout. After approximately 300 shocks a several minute pause was conducted. After about 1200 shocks the shock head was repositioned anteriorly. Focus was easily obtainable. The remainder of the shocks were scattered across the remaining fragments in the cluster. There was good change noted. He tolerated the procedure well without complication and was awakened in the operating room and returned to PACU in stable condition. PLANS: 1. Anticipate discharge from outpatient surgery 2. Follow-up in about 1 week for KUB and likely cystoscopy stent removal.
--- NOTE | 2022-04-13 10:40 | SUR.PHASEI ---
1040 PT AWAKE ALERT ABDOMEN SOFT IV TO RT FOREARM #20 NS 200ML NS AT KVO RATE. WRIST BAND TO LT WRIST PT ID'D WITH 2 IDENTIFIERS.
--- NOTE | 2022-04-13 13:22 | ANE.PACU2 ---
Inpatient post-anesthesia follow up: Airway intact: Yes Vital signs: Temperature 97.9 F Pulse Rate 54 Respiratory Rate 18 Blood Pressure 139/78 Pulse Oximetry 94 Oxygen Delivery Me thod Room Air Oxygen Flow Rate 8 Fraction of Inspir ed Oxygen Hydration adequate: Yes Nausea and vomiting: Yes Pain level: 1 Mental status: Baseline
== END 2022-04-13 11:49 | disposition home or self-care (01) ==
PROVIDERS: PCP Nurse Practitioner Family; Visit Provider Urology
PROC: (CPT 50590; principal; 2022-04-13 08:10)
DX: N20.0 Calculus of kidney (principal); I25.10 Atherosclerotic heart disease of native coronary artery without angina pectoris; I11.0 Hypertensive heart disease with heart failure; I50.9 Heart failure, unspecified; E78.5 Hyperlipidemia, unspecified; Z95.1 Presence of aortocoronary bypass graft; Z88.0 Allergy status to penicillin; Z96.0 Presence of urogenital implants
CPT/HCPCS: 50590; 74018; J1100; J1956; J2250; J2405; J2704; J2710; J3010; J3490; J7030

== ENCOUNTER 2022-04-21 07:17 | Outpatient (CLI) | payer MEDICARE, BC, SELFPAY ==
--- NOTE | 2022-04-21 07:23 | XR_ITS ---
WS: [id number] KUB, AP view, 04/21/2022 Clinical Data: stones Comparison: KUB, 04/13/2022. Findings: There are multiple right renal calcifications. There is no dilatated small bowel or evidence of obstr uction. No change in right ureteral stent and right renal calculi. XR/XR KUB [id number] Impression: Negative KUB.
== END 2022-04-21 07:18 | disposition home or self-care (01) ==
LOC: RAD 07:20
PROVIDERS: PCP Nurse Practitioner Family; Visit Provider Urology
DX: N20.9 Urinary calculus, unspecified (principal); Z98.890 Other specified postprocedural states
CPT/HCPCS: 74018; 81003; 99024

== ENCOUNTER 2022-04-22 08:52 | Day surgery (SDC) | payer MEDICARE, BC, SELFPAY ==
[2022-04-21 16:08] VITALS: BMI 26.6
[2022-04-22] VITALS (11 sets, daily range): BP systolic 126–141; BP diastolic 74–89; PULSE 51–63; RESP 8–21; TEMP 36.1–36.5; O2SAT 97–100
--- NOTE | 2022-04-22 | SCC_ITS ---
Procedure done: 1. Cystoscopy, removal of right ureteral stent 2. Right ureterorenoscopy, dilation of UPJ 3. Right laser lithotripsy of renal stone fragments 4. Placement of right ureteral stent (7 Moldovan by 26 cm double-pigtail without string) 124.7 seconds of fluoroscopic guidance, for a cumulative dose of 12.6 mGy, was provided to Dr. Frye by the radiology department. C-arm images of the abdomen were saved for the patient's permanent record. KTD
--- NOTE | 2022-04-22 05:58 | P.HPUD_ITS ---
Surgery/Procedure H&P Update DATE OF PROCEDURE: April 22, 2022 DATE H&P PERFORMED: 04/21/22 H&P UPDATE INFORMATION: I have reviewed H&P completed within last 30 days, I have examined patient prior to procedure, No changes to prior documentation and [place] [facility] [place] indicated PREOP DIAGNOSIS: Residual right renal calculus fragments PLANNED PROCEDURE: Operation Date: 04/22/22 10:40 Proposed Procedures p CYSTOSCOPY RIGHT URETEROSCOPY LASER STENT RETROGRADE 59210,18550-05,N20.9(Not Applicable) - Truman Frye MD s Ureteroscopy(Right) - Truman Frye MD s Laser Lithotripsy(Right) - Truman Frye MD s Ureteral Stent Placement(Right) - Truman Frye MD
--- NOTE | 2022-04-22 09:03 | SC_ITS ---
WS: [id number] INTRAOPERATIVE TECHNIQUE: 5 Spot fluoroscopic images for intraoperative purposes. FLUOROSCOPY TIME: 124.7 seconds CLINICAL INFORMATION: Right ureteroscopy FINDINGS: Moderate RIGHT hydronephrosis. Glidewires visualized in the RIGHT ureter and renal pelvis. SC/C-arm FL for Urology IMPRESSION: Images obtained for intraoperative purposes.
--- NOTE | 2022-04-22 09:17 | P.ANESASSM_ITS ---
Pre-Anesthetic Assessment Height/Weight: Height 1.7 m Weight 77.111 kg Preop Diagnosis: Digital right renal calculi fragments Operation Date: 04/22/22 10:40 Proposed Procedures p CYSTOSCOPY RIGHT URETEROSCOPY LASER STENT RETROGRADE 49997,90584-40,N20.9(Not Applicable) - Truman Frye MD s Ureteroscopy(Right) - Truman Frye MD s Laser Lithotripsy(Right) - MD olinda Cavanaugh Ureteral Stent Placement(Right) - Truman Frye MD Familial anesthetic complications: None Was Beta Kwesi taken within 24 hours: N/A Was Clonidine taken within 24 hours: N/A Last intake: > 8hrs Social No alcohol and No tobacco Exam alert, oriented x 3, clear to auscultation bilaterally and regular rate & rhythm Airway Mallampati: Class II Dentition: chipped CV/HEM Coronary Artery Disease, Congestive Heart Failure and Hypertension Hx cabg 09/23 myocardial perfusion IMPRESSIONS ?1. Large sized fixed perfusion abnormality of severe severity of basal to ?apical anterior, basal to mid anteroseptal, apical septal, apical lateral ?apical inferior and apical hawkins. ?2. The left ventricular ejection fraction is moderately reduced with a value of ?31%. ?3. There is global hypokinesis more pronounced in anterior anteroseptal and ?apical hawkins. ?4.? No significant coronary ischemia based on the study. Manager Books Conclusions ? There is severe coronary artery disease with three vessel disease. ? two grafts patent, and one graft diseased. ? Patient has prior CABG. Recommendations ? Continue current medical management and risk factor modification. Echo 10/22 CONCLUSIONS ?1-Moderately increased left ventricular cavity size. Moderately ?decreased left ventricular systolic function.? There appeared to ?be anterior, septal and apical akinesis.left ventricular ?ejection fraction is estimated at 39 %. Grade I/IV diastolic ?dysfunction (abnormal relaxation filling pattern), normal to ?mildly elevated filling pressures. ?2-Normal right ventricular size. RVSP could not be calculated ?due to incomplete tricuspid regurgitation velocity profile. ?3-Mildly thickened mitral valve. Mitral annular calcification. ?No mitral valve stenosis. No mitral valve regurgitation. ?4-There is no pericardial effusion. ?5-Right atrial pressure is around 5 mm of mercury. ?6-No significant change since the prior echocardiogram study of ?01/19/2014. 09/23 stress test CONCLUSION: 1. Equivocal EKG response to treadmill exercise given baseline ST-T wave changes. IVCD with LBBB like morphology. 2. No exercise-induced chest pain or cardiac arrhythmia. 3. Excellent exercise tolerance, attained a maximum of 13.5 METs. Maximum VO2 of 47.3 ml/kg/min. 4. Baseline normal blood pressure with normal response to exercise. 5. Chemical stress test may be considered, if clinically indicated. Metabolic Diabetes Mellitus and Hyperlipidemia Anesthetic Plan ASA status: 3 Anesthesia: General Risk of > 500 ml blood loss (7ml/kg in children): No Medications/Allergies Home Medications Medication Instructions Recorded Confirmed Last Taken Type herbal drugs 1 tab PO DAILY 11/18/20 04/22/22 04/21/22 07:00 History tamsulosin 0.4 mg capsule 0.4 mg PO .at bedtime #90 caps 02/26/22 04/22/22 04/21/22 20:00 Rx hydrocodone 5 mg-acetaminophen 325 1 tab PO Q8H PRN pain #15 tabs 03/23/22 04/21/22 Unknown Rx mg tablet Allergies Allergy/AdvReac Type Severity Reaction Status Date / Time Penicillins Allergy unknown Verified 04/21/22 07:47 COUNTS INCLUDE 234 BEDS AT THE [facility] Anesthesia Medical History CAD (coronary artery disease) of artery bypass graft CHF NYHA class II (symptoms with moderately strenuous activities) HLD (hyperlipidemia) HTN (hypertension) Hyperlipidemia associated with type 2 diabetes mellitus LV dysfunction Status post extracorporeal shock wave therapy Urolithiasis Surgical History History of lithotripsy Hx of right coronary artery stent placement S/P Achilles tendon repair S/P CABG x 3 S/P knee surgery Bilateral S/P shoulder surgery Bilateral S/P ureteral stent placement Family History Mother , at age 78 History of heart bypass surgery History of partial surgical removal of colon Father History of kidney stones Other CAD (coronary artery disease) Social History Smoking and tobacco status: never smoked Alcohol intake: never Adopted: No Lives independently: Yes Household members: spouse Marital status: Current occupational status: employed and retired History of recent travel: No Data Anesthesia Cardiac Studies: Echocardiogram Ultrasound 10/25/19 Sestamibi Stress Test (Cardiology) 09/26
[2022-04-22] MEDS: sodium chloride 0.9% 1,000 ML 30 ML IV (09:30)
[2022-04-22] MEDS: levofloxacin-dextrose 5 % 500 MG/100 ML PREMIX 100 MG IV (10:25)
--- NOTE | 2022-04-22 10:55 | SUR.OPER ---
[id number]/ml 25ml added to sterile field for right retrograde. lot [id number]. exp 12/04/24
--- NOTE | 2022-04-22 10:59 | SUR.OPER ---
omnipaque 350mgI/ml 20ml added to sterile field. lot [id number] exp 11/27/24
--- NOTE | 2022-04-22 12:11 | P.OP_ITS ---
Operative Report Date of procedure: April 22, 2022 Pre-op diagnosis: Residual right renal stone fragments status post ESWL x2 Post-op diagnosis: 1. Residual right renal stone fragments status post ESWL x2 2. Right UPJ narrowing Procedure done: 1. Cystoscopy, removal of right ureteral stent 2. Right ureterorenoscopy, dilation of UPJ 3. Right laser lithotripsy of renal stone fragments 4. Placement of right ureteral stent (7 [place] by 26 cm double-pigtail without string) Implants: Right ureteral stent Specimens removed/disposition: Very small grit/sand from stone fragmentation Pathology: Very small grit/sand from stone fragmentation Surgeon: Melva Estimated blood loss: Minimal Urine output: Not measured Complications: None Findings: Anesthesia: General Condition: Stable Disposition: PACU Intraoperative findings: * Right UPJ narrowing requiring dilation first with 6 [place] mini scope, 7 [place] ureteroscope before being able to pass the 7.5 [place] flexible ureteroscope * Stone fragments consistent with what was seen on the KUB post ESWL were identified and completely fragmented with a 200 ?m thulium superpulse laser fiber. Could not identify any other sizable fragments with calyceal inspection directly or fluoroscopic visualization Brief History: Mr. Redding is a very pleasant 66-year-old white male who recently was evaluated for intermittently symptomatic right renal pelvic stone that appeared to be migrating [id number] between the UPJ and the more proximal renal pelvis. Ultimately he elected treatment with ESWL. He had a stent placed with the first ESWL and there was good change noted but there is still fragments felt to be large enough to likely create some intermittent obstruction if the stent was removed and therefore he was treated again. The second treatment yielded smaller fragments but still the bulk was felt to be marginal on whether or not he would build to pass it without difficulty. 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 We reviewed his options which would include repeat ESWL versus endoscopy versus just taking the stent out and hoping for passage. Ultimately he chose endoscopic approach. On preop KUB there appeared to be a fairly significantly dilated renal pelvis even when the stone was in the renal pelvic area which raise the question of possible UPJ type obstruction but on at least 2 CT scans that was not clearly identified. Procedure: After routine preoperative evaluation examination and obtaining of informed consent he was taken to the operating suite on 04/22/2022 where general anesthesia was administered without difficulty after appropriate timeout was pe rformed, SCDs confirmed to be functioning, preoperative antibiotics administered, beta-axel protocol confirmed. Prepped and draped in usual sterile fashion in dorsolithotomy position paying careful attention to avoiding pressure points. 21 [place] cystoscope with 30 degree lens was introduced into urethra meatus and advanced to the bladder without difficulty. Stent was in expected position. There is minimal encrustation. Flexible tip guidewire was then passed through the scope and next to the stent up the right ureter curling in the area of the upper pole calyx. Stent was secured in grasping forceps and under fluoroscopic monitoring was easily withdrawn. The scope was removed the wire was secured to the drapes as a safety wire with a hemostat. A second wire was passed and a 38 cm ureteral access sheath was easily advanced over the guidewire under fluoroscopic monitoring to just below the UPJ. A flexible ureteroscope was then passed over the guidewire through the sheath and up to the UPJ where it became difficult to pass the scope beyond the UPJ. There did appear to be some inflammatory change there but no trauma. A right retrograde ureteropyelogram was then performed which demonstrated: Narrowing at the UPJ, dilation proximal to the narrowed area including the renal pelvis and calyceal system. Reattempted passing the scope again was unsuccessful. The wire was repassed and a 6 [place] mini scope was then advanced to the same area and was able to be utilized as a dilator and manipulated through the narrow UPJ into the renal pelvis. The 7 [place] offset semirigid ureteroscope was then passed over the wire for the same purpose. It was able to be easily passed [id number] across the UPJ. The renal pelvis was drained and then the 7.5 Fr ench flexible ureteroscope was then advanced over the wire and this time could be passed into the renal pelvis after the previous 6 [place] mini scope and 7 [place] offset scope dilation procedure described above. The calyceal system was carefully inspected with a flexible ureterorenoscope and multiple stone fragments were noted as seen on x-ray in the right lower pole and several calyces. One by one these were fragmented with a 200 ?m thulium superpulse laser fiber mostly into sand and some very very small fragments. Almost everything remaining was smaller than the tip of the 200 ?m laser fiber. Fluoroscopic monitoring showed no residual stones or could be easily identified. Careful inspection of all the calyces which appear to be complete did not show any other stone fragments. A lot of sand was flushed through the scope and some collected for analysis. The stone fragments appeared to be consistent with calcium oxalate monohydrate and were very dense. The sheath was then backloaded onto the hub of the flexible ureteroscope and the scope was withdrawn under direct visualization. There was some mild trauma the UPJ area but nothing of any concern at all. It was decided to leave a stent indwelling and this time a 7 South Korean (he had a 6 South Korean 26 previously) in order to ensure further passive dilation and healing. Again the narrowing that required dilation was after of having an a 6 [place] stent in for multiple weeks. No other findings on removal of the scope were noted. The cystoscope was then backloaded over the safety wire and a 7 [place] by 26 cm double-pigtail stent without string was easily Gay over the guidewire through the cystoscope into appropriate position as confirmed via fluoroscopy and cystoscopy. The bladder was drained. There were a few small fragments there as well. Specimens were collected, procedure was completed, and he was transported to the PACU in stable condition. PLANS: 1. Anticipate discharge from outpatient surgery 2. Maintain stent for least a couple weeks for healing of the UPJ area that required dilation 3. Follow-up at that time with a KUB and likely stent removal.
--- NOTE | 2022-04-22 12:43 | ECG_ITS ---
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 Measurements Intervals [place] Rate: 52 P: 52 DC: 271 QRS: 1 QRSD: 114 T: 113 QT: 486 QTc: 456 Interpretive Statements SINUS BRADYCARDIA WITH FIRST DEGREE AV BLOCK POSSIBLE ANTERIOR MYOCARDIAL INFARCTION , OF INDETERMINATE AGE [30 ms Q WAVE IN V3/V4, OR R < 0.2 mV IN V4] MODERATE T-WAVE ABNORMALITY, CONSIDER LATERAL ISCHEMIA [-0.1+ mV T-WAVE IN I/aVL/V5/V6] Compared to ECG 03/23/2022 07:54:56 T-wave abnormality now present Possible ischemia now present Myocardial infarct finding still present Electronically Signed On 04-22-2022 22:48:54 CDT by Jyotsna Tate M.D. [id number]
--- NOTE | 2022-04-22 13:56 | ANE.PACU2 ---
Inpatient post-anesthesia follow up: Airway intact: Yes Vital signs: Temperature 97.0 F Pulse Rate 59 Respiratory Rate 21 Blood Pressure 141/89 Pulse Oximetry 97 Oxygen Delivery Me thod Room Air Oxygen Flow Rate 6 Fraction of Inspir ed Oxygen Hydration adequate: Yes Nausea and vomiting: No Pain level: 1 Mental status: Baseline
[2022-04-26 17:44] LABS: Stone Source RENAL
== END 2022-04-22 13:45 | disposition home or self-care (01) ==
PROVIDERS: PCP Nurse Practitioner Family; Visit Provider Urology
PROC: 0TJB8ZZ Inspection of Bladder, Via Natural or Artificial Opening Endoscopic (ICD-10-PCS; CPT 52000; principal; 2022-04-22 10:30)
PROC: 0TJ98ZZ Inspection of Ureter, Via Natural or Artificial Opening Endoscopic (ICD-10-PCS; CPT 52351; 2022-04-22 10:30)
PROC: (CPT 52356; 2022-04-22 10:30)
PROC: (CPT 50605; 2022-04-22 10:30)
PROC: (CPT 52310; 2022-04-22 10:30)
DX: N20.0 Calculus of kidney (principal); I25.10 Atherosclerotic heart disease of native coronary artery without angina pectoris; I11.0 Hypertensive heart disease with heart failure; I50.9 Heart failure, unspecified; Z95.1 Presence of aortocoronary bypass graft; E78.5 Hyperlipidemia, unspecified
CPT/HCPCS: 52356; 76000; 82365; 88300; 93005; C2625; J1100; J1956; J2405; J2704; J2710; J3010; J3490; J7030

== ENCOUNTER 2022-05-06 14:04 | Outpatient (CLI) | payer MEDICARE, BC, SELFPAY ==
--- NOTE | 2022-05-06 14:18 | XR_ITS ---
WS: [id number] KUB, AP view, 05/06/2022 Clinical Data: Urolithiasis Comparison: KUB, 04/21/2022 Findings: The previous right renal calcifications may be absent or obscured by overlying fecal material. The ri ght ureteral stent remains in good position. No abnormal intraabdominal masses are seen. There is no dilatated small bowel or evidence of obstruct ion. There is a large amount of fecal material throughout the colon. XR/XR KUB [id number] Impression: 1. Right ureteral stent. 2. Right renal calcifications may be obscured by fecal material.
== END 2022-05-06 14:05 | disposition home or self-care (01) ==
LOC: RAD 14:07
PROVIDERS: PCP Nurse Practitioner Family; Visit Provider Urology
DX: N20.9 Urinary calculus, unspecified (principal); Z96.0 Presence of urogenital implants
CPT/HCPCS: 52310; 74018; 81003; 99024

== ENCOUNTER 2022-09-01 10:49 | Outpatient (CLI) | payer MEDICARE, BC, SELFPAY ==
--- NOTE | 2022-09-01 11:15 | USCV_ITS ---
Omar Redding Age: 66 Gender: M : 1955 Exam Date: 09/01/2022 11:34 Ordering Phys: Meredith Gonzalez MD ([email or web address]) Technologist: CT [place] [facility] [place]: hx of cardiomyopathy BP: 120 / 70 HR: 52 Rhythm: Sinus Technical Quality: Adequate MEASUREMENTS (Male / Female) Normal Values 2D ECHO LV Diastolic Diameter PLAX 5.9 cm 4.2 - 5.9 / 3.9 - 5.3 cm LV Systolic Diameter PLAX 4.9 cm IVS Diastolic Thickness 1.1 cm 0.6 - 1.0 / 0.6 - 0.9 cm IVS Systolic Thickness 1.2 cm LVPW Diastolic Thickness 1.2 cm 0.6 - 1.0 / 0.6 - 0.9 cm LVPW Systolic Thickness 1.6 cm LVOT Diameter 2.0 cm LV Ejection Fraction 2D Teich 33.0 % LV Ejection Fraction MOD 2C 57.2 % LV Ejection Fraction 2C AL 57.9 % LA Diameter 5.0 cm Aorta at Sinotubular Diameter 2.4 cm M-MODE Aortic Annulus Diameter 3.1 cm LA Ao Ratio MM 1.7 MV E Point Septal Separation 2.1 cm DOPPLER AV Peak Velocity 108.0 cm/s LVOT Peak Velocity 56.0 cm/s AV Area Cont Eq vti 1.6 cm squared AV Area Cont Eq pk 1.6 cm squared MV Area PHT 5.0 cm squared Mitral E to A Ratio 1.4 MV E' Velocity 44.5 cm/s Mitral E to MV E' Ratio 13.3 Mitral E to LV E' Lateral Ratio 10.3 Mitral E to LV E' Septal Ratio 18.9 TR Peak Velocity 126.0 cm/s TR Peak Gradient 6.4 mmHg TV Peak E Velocity 69.0 cm/s Right Atrial Pressure 3.0 mmHg Pulmonary Artery Systolic Pressu 9.4 mmHg RV Acceleration Time 0.1 s FINDINGS Left Ventricle Mildly dilated LV cavity with a diminished ejection fraction of 47%. Moderate diffuse hypokinesia of the septum, anteroseptum and the LV apex Right Ventricle Possibly of normal size and ejection fraction Right Atrium Mildly increased right atrial size. Left Atrium Moderately increased left atrial size. Mitral Valve Thickened mitral valve. Trace mitral valve regurgitation. Aortic Valve Minimally thickened aortic valve Tricuspid Valve No tricuspid valve regurgitation. Pulmonic Valve Pulmonic valve not well visualized. Pericardium No pericardial effusion. Aorta Normal size aortic root and proximal ascending aorta. IVC Inferior vena cava not visualized. CONCLUSIONS Mildly dilated LV cavity with a diminished ejection fraction of 47%. Moderate diffuse hypokinesia of the septum, anteroseptum and the LV apex. . Biatrial lodgment,L>R Thickened mitral valve. Trace mitral valve regurgitation. Minimally thickened aortic valve. There is no pericardial effusion. There are no intracardiac masses. Compared to the study from 10/25/2019, the LV ejection fraction has improved from 39% to 47% Dr Jyotsna Tate MD [facility] (Electronically Signed) Final Date: 02 September 2022 06:49 S
== END 2022-09-01 10:50 | disposition home or self-care (01) ==
PROVIDERS: PCP Nurse Practitioner Family; Visit Provider Internal Medicine Cardiovascular Disease
DX: I08.0 Rheumatic disorders of both mitral and aortic valves (principal)
CPT/HCPCS: 93306

== ENCOUNTER 2022-11-03 07:42 | Outpatient (CLI) | payer MEDICARE, SELFPAY ==
--- NOTE | 2022-11-03 07:52 | XR_ITS ---
WS: [id number] XR KUB [id number] REASON FOR EXAM: STONES FINDINGS: Very difficult to evaluate the presence of renal calculi due to the large amount of overlying colon c ontents. There is probably a calculus within the upper pole of the right kidney. 5 mm. Equivocal finding of calculi overlying the lower pole of the right kidney. Probable small calculus within the mid to upper left kidney. 2 mm. No other urinary tract calculi identified. No other significant abdominal abnormality. XR/XR KUB [id number] IMPRESSION: Probable bilateral upper pole renal calculi.
== END 2022-11-03 07:43 | disposition home or self-care (01) ==
LOC: RAD 07:45
PROVIDERS: PCP Nurse Practitioner Family; Visit Provider Urology
DX: N20.9 Urinary calculus, unspecified (principal); N13.5 Crossing vessel and stricture of ureter without hydronephrosis
CPT/HCPCS: 74018; 99213

== ENCOUNTER → 2022-11-05 11:04 | Outpatient (BNVA) | payer MEDICARE, BC, SELFPAY | PROVIDERS: PCP Nurse Practitioner Family; Visit Provider Internal Medicine Cardiovascular Disease | DX: Z02.4 Encounter for examination for driving license (principal); I11.0 Hypertensive heart disease with heart failure; I50.9 Heart failure, unspecified; E11.69 Type 2 diabetes mellitus with other specified complication; E78.5 Hyperlipidemia, unspecified; I25.708 Atherosclerosis of coronary artery bypass graft(s), unspecified, with other forms of angina pectoris | CPT/HCPCS: 99214 ==

== ENCOUNTER 2022-11-09 06:45 | Outpatient (CLI) | payer MEDICARE, BC, SELFPAY ==
--- NOTE | 2022-11-09 | ECG_ITS ---
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 Poor R wave progression suggesting old anteroseptal WI. 2 inversions in the high lateral leads suggesting ischemia. The baseline heart was 59 bpm with a blood pressue of 128/78 mm of Hg Lexiscan was infused over a period of 20 seconds. A total of 0.4 milligrams of Lexiscan was infused. The stress phase was continued for a total of 5 minutes. Heart rate at the end of the stress phase was 81 bpm with a blood pressure 140/86 mm of Hg. The EKG at the peak infusion revealed no significant changes. Sestamibi was injected 20 seconds after the Lexiscan infusion. Heart rate at the end of the recovery phase was 77 bpm with a blood pressure of 134/82 mm of Hg. CONCLUSION: 1. No significant EKG changes with the LexiScan infusion 2. No LexiScan induced chest pain or cardiac arrhythmia 3. Normal blood pressure and heart rate response 4. Sestamibi/sestamibi perfusion scan pending; see separate report. Electronically Signed On 11-10-2022 20:37:21 CDT by Jyotsna Tate M.D. [id number]
[2022-11-09 06:58] VITALS: BMI 28.2
--- NOTE | 2022-11-09 06:59 | NMCV_ITS ---
NM jeovanny perf SPECT r/s* [id number] Omar Redding Age: 66 Gender: M : 1955 Exam Date: 11/09/2022 07:52 Ordering Phys: Shaista Arana Technologist: RACHID Boles Exam Location: [facility] Indications: ATHEROSCLEROTIC HEART DISEASE, CORONARY ANGIOPLASTY STATUS STRESS TEST Please see separate stress test report in [facility] for full findings IMAGE PROTOCOL Rest/Stress 1 Lexiscan Day Radiopharmaceutical Dose (mCi) Administration Site Administered by Rest: Tc-99m 10.9 IV RACHID Baum Sestamibi Stress:Tc-99m 32.4 IV RACHID Baum Sestamibi Rest: 09-Nov-2022 60 Discovery 630 Stress: 09-Nov-2022 30 Discovery 630 0.4mg Lexiscan. Images obtained in supine and prone position. SPECT RESULTS Technical Quality: Excellent Raw Data Analysis: Normal Image Corrections: No attenuation or motion correction applied Summed Stress Score: 26 Summed Rest Score: 28 Summed Difference Score: 0 PERFUSION FINDINGS Moderate to severely decreased recently in the basal, mid and apical anterior, mid anteroseptal and all the apical segments. No significant reversibility was noted in these regions. With the supine SPECT imaging, there was significant reversibility in these regions. However with the prone imaging, there was no significant reversible defects. FUNCTIONAL RESULTS (calculated via Gated SPECT) Stress Image LV EF (%): 29 Stress EDV (mL):248 TID: 1.08 Stress ESV (mL):176 FUNCTIONAL FINDINGS: Segmental wall motion analysis revealed diffuse hypokinesia of the left ventricle IMPRESSIONS 1. Myocardial perfusion imaging revealing moderate area of moderate to severely decreases uptake in the anterior wall, anteroseptal and apical regions with a significant reversibility in the supine imaging, suggesting ischemia in the distribution of all 3 coronary arteries, predominantly in the distribution of the left anterior descending artery. However because of the inconsistency with the prone imaging, the reliability of this finding is questionable. 2. Markedly diminished LV ejection fraction 29%. 3. LV wall motion analysis revealing severe diffuse hypokinesia of the left ventricle. 4. Moderately dilated LV cavity. Compared to the study from 09/26/2021, there appears to be no significant change in the prone imaging. Clinical correlation is recommended. Dr Jyotsna Tate MD [facility] (Electronically Signed) Final Date: 09 Nov 2022 23:34 S
[2022-11-09] MEDS: regadenoson 0.4 Mg/5 ml Syringe IVP (08:24)
[2022-11-09 08:45] VITALS: BP 134/82; PULSE 79
== END 2022-11-09 06:46 | disposition home or self-care (01) ==
LOC: CDL 06:47
PROVIDERS: PCP Nurse Practitioner Family; Visit Provider Nurse Practitioner Family
DX: R94.39 Abnormal result of other cardiovascular function study (principal); Z95.1 Presence of aortocoronary bypass graft; I25.708 Atherosclerosis of coronary artery bypass graft(s), unspecified, with other forms of angina pectoris
CPT/HCPCS: 36415; 78452; 93017; 96374; A9500; J2785

== ENCOUNTER 2022-12-01 06:04 | Outpatient (CLI) | payer MEDICARE, BC, SELFPAY ==
[2022-12-01] VITALS (17 sets, daily range): BP systolic 102–149; BP diastolic 64–84; PULSE 51–72; RESP 12–28; TEMP 36.6–36.8; O2SAT 92–98; BMI 27.1
[2022-12-01] MEDS: aspirin 325 mg Tablet PO (06:20)
[2022-12-01] MEDS: diphenhydrAMINE 50 mg Capsule PO (06:20)
[2022-12-01 06:31] LABS: Glucose Point of Care 92 mg/dL (70-110)
[2022-12-01 06:32] LABS: Basophils # 0.1 10^3/uL (0.0-0.1); Eosinophils # 0.5 10^3/uL (0.0-0.8); Hemoglobin 17.5 g/dL (11.7-16.6); Lymphocytes # 2.9 10^3/uL (0.8-4.8); Lymphocytes % 36.8 %; Mean Corpuscular HGB Conc 32.4 g/dL (30.0-36.0); Mean Corpuscular Hemoglobin 30.3 pg (28.0-34.0); Mean Corpuscular Volume 93.4 fl (80-94); Mean Platelet Volume 11.2 fL (7.4-10.4); Monocytes # 0.6 10^3/uL (0.2-0.9); Monocytes % 8.2 %; Neutrophils # 3.75 10^3/uL (1.8-7.7); Neutrophils % 47.9 %; Nucleated Red Blood Cells % 0 %; Platelet Count 224 10^3/cmm (130-400); Red Blood Count 5.78 10^6/uL (4.1-5.3); Red Cell Distribution Width 13.2 % (12.1-15.1); White Blood Count 7.8 10^3/uL (4.0-10.0)
[2022-12-01 06:50] LABS: Blood Urea Nitrogen 19 mg/dL (8-23); Calcium 9.6 mg/dL (8.5-10.5); Carbon Dioxide 23 mmol/L (22-29); Chloride 103 mmol/L (98-107); Glomerular Filtration Rate 83.9 mL/min (90-130); Glucose 80 mg/dL (65-115); Osmolality Calculated 287 mOsm/kg (285-295); Sodium 138 mmol/L (136-145)
[2022-12-01 06:51] LABS: Anion Gap 16.2 (5-19); Potassium 4.2 mmol/L (3.5-5.1)
--- NOTE | 2022-12-01 07:00 | XACV_ITS ---
Exam Room: 2 Ht: 170 cm Wt: 78 kg BSA: 1.94 m2 Gender: Male : 1955 Any Known Allergies: Penicillins Exam Priority: Routine Procedure(s): Procedure Description: Diagnostic procedure Procedure Description: PCI procedure Procedure Description: Venous Graft Catheterization Procedure Description: LEMUS Graft Catheterization Procedure Description: Drug Eluting Coronary Stent Procedure Description: Coronary Angiography Diagnostic Cath Status: Elective Diagnostic Findings * INDICATION: Abnormal stress test/ LV dysfunction (EF 29% on stress test). * Severe [place] coronary artery disease. * Left main artery: Patent. * LAD: Ostially occluded. * Left circumflex artery: Has moderate proximally occluded. OM 1 is occluded. OM 2 is patent. Left circumflex artery is totally occluded after giving rise to OM 2. * RCA: Ostially occluded. * Bypass grafts: LEMUS to LAD: Patent. SVG to OM: Patent. SVG to RCA: Proximally graft has 40% stenosis. At the touchdown there is a 70% severe stenosis. * Coronary angiography shows right dominance. PCI Status: Elective PCI Indication: Other Interventional Findings * PROCEDURE DETAIL: We engaged SVG to RCA with JR4 guidewire. IV heparin was administered to maintain anticoagulation. 0.014 run-through guidewire was put in distal vessel. We then placed a 2.75X15 mm resolute Vazquez drug-eluting stent in SVG to RCA. At this time final angiogram was performed that showed excellent stent expansion, no residual stenosis and LUCIANO-3 flow. Guidewire and guide catheter were removed. 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 Conclusions 1. Severe [place] coronary artery disease. 2. Severe SVG to RCA stenosis at touchdown. S/p successful revascularization with DESx1. 3. Patient has prior CABG. Recommendations * Dual antiplatelet therapy with aspirin and plavix. * Outpatient cardiology follow up in 4 weeks. Interventional RX Recommendation: PCI w/o planned CABG Diagnostic RX Recommendation: PCI w/o planned CABG Anticoagulation: Heparin Pressures Phase:Rest AO : 119 / 65 ( 89 ) @ 8:55:00 AM 117 / 63 ( 86 ) @ 8:57:00 AM 118 / 60 ( 84 ) @ 9:06:00 AM Clinical Evaluation EBL: 5mL-10mL Procedural Details Procedure Consent Obtained. Pre-Procedure Time Out. Identified patient by full name and date of as verbalized by the patient/guarantor. Does the consent match the physician's order: Yes. Accurate & Complete Informed Consent: Yes. Inpatient/Outpatient History & Physical on Chart: Yes. If H&P is completed, is and addenduem needed: No. Visualize and Verify Site with Patient/Guarantor: N/A. Relevant Radiology Images available: Yes. The risks, benefits, and alternatives of sedation and/or procedure were discussed by physician. The patient agrees to continue. Procedure started. [facility] Clinical Fraility Score: 3: Managing Well. 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 Chest Pain Symptom Assessment: Typical Angina Symptoms. Cardiovascular Instability: No. Correct patient, site and procedure confirmed by cath team. PERRLA. Strong, equal hand printed circuit board assembly repairer bilaterally. Lungs clear x 5 lobes. IV Site on Arrival: 20 gauge in the right anticubital. IV Fluids: 0.9% NaCl at KVO. 0 mL infused prior to bolt labeler. Pre Procedural Pulses: bilateral dorsalis pedis was 2+. Pre Procedural Pulses: bilateral posterior tibial was 1+. Oxygen started at 2liters/min via nasal canula. bilateral groins was prepped with chloroprep then draped in the usual sterile fashion. Physician notified. Baseline sample Acquired. HR: 95 BPM. Patient's spouse in CPRU room 3. Dr. Tellez will update at the completion of the procedure. Equipment: 6F - Femoral. Cardiac Cath Pack. ACIST Manifold Kit Model BT 2000. Heparinized Saline (2 units/mL), 1000 mL bag. Kit, Micropuncture. Physician arrived. Physician scrubbed in. Immediate Pre-Procedure Time Out. Correct Patient: Yes; Correct Procedure: Yes; Correct Site: Yes; Correct Patient Position: Yes; Correct Supplies: Yes; Dried Flammable Prep: Yes; Blood Products Available: N/A;. Lidocaine 1% infiltrated to the right groin. Arterial access obtained with micropuncture set, unable to thread wire. Needle and wire out. Manual pressure being held by Dr. Tellez. Arterial access obtained with micropuncture set. A 6 malagasy JL4 catheter in over the standard J wire. Catheter removed over the standard J wire. A 5 malagasy JL4.5 catheter in over the standard J wire. Multiple views taken of left coronary artery. Catheter removed over the standard J wire. A 6 malagasy JR4 catheter in over the standard J wire. Multiple views taken of right coronary artery. Catheter redirected to the SVG. SVG's to RCA visualized. Catheter redirected to the SVG. SVG's to Circumflex visualized and patent. Catheter redirected to the LEMUS. LEMUS to LAD visualized. Catheter removed over the standard J wire. 6 malagasy JR 4 guide catheter was inserted over the standard J wire. Add inventory: co-dry box tender, endoflator, Runthrough guidewire. Runthrough guidewire was advanced through the guide catheter to lesion in the distal SVG --> RCA. Inflation Number : 1 Sherrie JONES R VAZQUEZ 2.75X15 KB -Lot Number# [id number] was prepped and advanced across the Aorta Right -> Dist RCA. The stent was deployed at 12 CHESTER for 0:24 seconds. Exp . Stent balloon out over wire. Results checked. Wire out. ACT drawn. Results 371 seconds. Therapeutic limits - pre-heparin administration 90-150 seconds and monitoring heparin during a vascular procedure >250 seconds. Guide catheter out. A Right femoral angiogram was performed to determine safe placement of closure device. A Angio-Seal VIP (St. Max) was successful obtaining hemostatsis at the Right Femoral artery insertion site. Angioseal placed without complications. No signs or symptoms of hematoma noted. Sterile dressing applied per usual sterile fashion. Lot # [id number]. Exp. 2023-05-04. Post Procedure: Pulses reassessed and unchanged. PERRLA. Strong, equal hand printed circuit board assembly repairer bilaterally. No VTE prophylaxis required. Medication's Wasted: Lidocaine 1% = 2 mL. Medication's Wasted: Heparin = 4000 Units. Total IV fluids: 48 mL. PCI Indication: CAD (without ischemic symptoms). Post-op diagnosis: S/P PCI of the distal SVG-->RCA. Complications: none. Estimated blood loss: 5mL-10mL. Responsiveness - Normal response to verbal stimuli; alert and oriented, PERRLA. Airway - Unaffected, no intervention required; spontaneous ventilation. Circulation: W/N/L, pulses unchanged. Nausea/Vomiting: No. Procedure completed. Patient transferred by bed to 1st floor. Vital chart was stopped. Access Site Site: Right Femoral artery Sheath Size: 6 Fr Hemostasis Method: Angio-Seal VIP (St. Max) Hemostasis Success: Successful Procedure Medications Start: 7:41 AM Stop: 7:41 AM Medication: Versed Amount: 1 mg Route: I.V. Start: 7:42 AM Stop: 7:42 AM Medication: Fentanyl Amount: 50 mcg Route: I.V. Start: 7:44 AM Stop: 7:44 AM Medication: Versed Amount: 1 mg Route: I.V. Start: 7:45 AM Stop: 7:45 AM Medication: Fentanyl Amount: 25 mcg Route: I.V. Start: 7:49 AM Stop: 7:49 AM Medication: Versed Amount: 1 mg Route: I.V. Start: 8:03 AM Stop: 8:03 AM Medication: Versed Amount: 1 mg Route: I.V. Start: 8:03 AM Stop: 8:03 AM Medication: Fentanyl Amount: 25 mcg Route: I.V. Start: 8:03 AM Stop: 8:03 AM Medication: Heparin Amount: 7000 units Route: I.V. I, the attending physician, have reviewed and verified all procedure medications. Yes, all medications given per verbal order History/Risk Factors Hypertension: Yes Dyslipidemia: Yes Peripheral Arterial Disease (PAD): No Myocardial Infarction (MT): No Obesity: No Renal Disease: No Tobacco Use: Never Prior Interventions PCI: No CABG: Yes Valve Surgery: No Report Signatures Finalized by Clint Tellez MD on 12/05/2022 03:09 PM
--- NOTE | 2022-12-01 07:40 | W.PM.OPSUD ---
Surgery/Procedure H&P Update DATE OF PROCEDURE: December 01, 2022 DATE H&P PERFORMED: 11/05/22 H&P UPDATE INFORMATION: I have reviewed H&P completed within last 30 days, I have examined patient prior to procedure and No changes to prior documentation PREOP DIAGNOSIS: Abnormal stress test PRIMARY INDICATION FOR PROCEDURE: Abnormal stress test PLANNED PROCEDURE: Operation Date: 12/01/22 07:00 Proposed Procedures p [facility] w/ w/o [id number] Z95.1,R94.39,I25.708(Left) - Clint Tellez M.D Possible percutanoeus coronary intervention PATIENT REASSESSED PRIOR TO SEDATION, WITH NO CHANGE NOTED: Yes PHYSICAL EXAM: alert, oriented x 3, clear to auscultation bilaterally and regular rate & rhythm AIRWAY EVAL/ANESTHESIA PLAN: normal airway, ASA III, Monitored Anesthesia, Local Anesthesia, Risks, benefits & alternatives of sedation and/or procedure discussed and Patient agrees to continue as planned ADDITIONAL INFORMATION: Moderate sedation
--- NOTE | 2022-12-01 08:25 | PC.NURSE ---
Recovery Note Pt arrived from labor specialist to CPRU 3. Pt alert and oriented, breathing even and non-labored on room air. Pt denies pain at this time. Placed on bedside court monitor. Right groin has clean and dry dressing with angioseal as closure device. Ambulation time 1220. Pedal pulses palpable. Pt and educated on activity restrictions, verbalized understanding. Call light in reach. Report called to floor nurse RAMIREZ Vazquez.
--- NOTE | 2022-12-01 09:15 | PC.NURSE ---
Pt transferred to room 106 via bed. at bedside. Bedside site check performed with RAMIREZ Vazquez. No signs of bleeding or hematoma. Right groin dressing clean, dry, and intact.
--- NOTE | 2022-12-01 09:32 | PC.NURSE ---
Patient arrives on CSU from optical laboratory mechanic.
[2022-12-02 03:49] VITALS: BP 131/71; PULSE 60; RESP 16; TEMP 36.6; O2SAT 97
[2022-12-02 04:00] LABS: Basophils # 0.1 10^3/uL (0.0-0.1); Eosinophils # 0.5 10^3/uL (0.0-0.8); Eosinophils % 6.5 %; Hematocrit 44.4 % (42.0-52.0); Hemoglobin 14.6 g/dL (11.7-16.6); Lymphocytes # 1.3 10^3/uL (0.8-4.8); Lymphocytes % 18.6 %; Mean Corpuscular HGB Conc 32.9 g/dL (30.0-36.0); Mean Corpuscular Hemoglobin 30.4 pg (28.0-34.0); Mean Corpuscular Volume 92.5 fl (80-94); Mean Platelet Volume 11.5 fL (7.4-10.4); Monocytes # 0.6 10^3/uL (0.2-0.9); Neutrophils % 64.8 %; Nucleated Red Blood Cells % 0 %; Platelet Count 189 10^3/cmm (130-400); Red Cell Distribution Width 13.2 % (12.1-15.1); White Blood Count 7.1 10^3/uL (4.0-10.0)
[2022-12-02 04:30] LABS: Blood Urea Nitrogen 22 mg/dL (8-23); Calcium 8.9 mg/dL (8.5-10.5); Carbon Dioxide 23 mmol/L (22-29); Chloride 108 mmol/L (98-107); Glomerular Filtration Rate 83.9 mL/min (90-130); Glucose 84 mg/dL (65-115); Osmolality Calculated 291 mOsm/kg (285-295); Sodium 139 mmol/L (136-145)
[2022-12-02 04:31] LABS: Anion Gap 12.1 (5-19); Potassium 4.1 mmol/L (3.5-5.1)
[2022-12-02 05:52] VITALS: PULSE 54
--- NOTE | 2022-12-02 07:28 | P.DS_ITS ---
Discharge Providers Date of Admission: December 01, 2022 Date of Discharge: December 02, 2022 Attending Provider at Admission: Clint Tellez MD Attending Provider at Discharge: Clint Tellez M.D Primary Care Provider: PAM Vance Diagnoses at Discharge Discharge Diagnosis (1) CAD (coronary artery disease) of artery bypass graft: Status: Acute Qualifiers: [place] vs. 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 Stress test was showing ischemia normal 3 coronary artery arteries. LV systolic function is also significantly decreased. He is here for coronary angiogram with possible PCI planned. Hospital Course Hospital Course Coronary angiogram showed patent LEMUS to LAD and SVG to OM. SVG to RCA had moderate proximal stenosis and severe stenosis at the touchdown. He underwent successful revascularization with KB x1 at SVG to RCA at touchdown. He was discharged home in a stable condition after monitoring overnight on aspirin and Plavix. He does not want to take statin therapy or other additional medications at this time. Physical Exam Narrative: GENERAL: Patient is alert, awake and oriented x3. [] NECK: No jugular vein distension. [] HEENT: No cyanosis. No icterus. No pallor. [] HEART: Regular S1 and S2. No murmur, rub or gallop. [] LUNGS: Clear to auscultate bilaterally. [] CENTRAL NERVOUS SYSTEM: Grossly nonfocal. [] EXTREMITIES: Lower extremities with no edema Discharge Data Studies Completed and Pending Pending at discharge Category Date Time Status SENIOR BUSINESS DEVELOPMENT MANAGER request for service Routine Exams 12/01/22 07:00 Taken Laboratory Results WBC 7.1 10^3/uL (4.0-10.0) 12/02/22 03:19 RBC 4.80 10^6/uL (4.1-5.3) 12/02/22 03:19 Hgb 14.6 g/dL (11.7-16.6) 12/02/22 03:19 Hct 44.4 % (42.0-52.0) 12/02/22 03:19 MCV 92.5 fl (80-94) 12/02/22 03:19 MCH 30.4 pg (28.0-34.0) 12/02/22 03:19 MCHC 32.9 g/dL (30.0-36.0) 12/02/22 03:19 RDW 13.2 % (12.1-15.1) 12/02/22 03:19 Plt Count 189 10^3/cmm (130-400) 12/02/22 03:19 MPV 11.5 fL (7.4-10.4) H 12/02/22 03:19 Neut % (Auto) 64.8 % 12/02/22 03:19 Lymph % (Auto) 18.6 % 12/02/22 03:19 Gibson % (Auto) 9.0 % 12/02/22 03:19 Eos % (Auto) 6.5 % 12/02/22 03:19 Baso % (Auto) 1.0 % 12/02/22 03:19 Neut # (Auto) 4.60 10^3/uL (1.8-7.7) 12/02/22 03:19 Lymph # (Auto) 1.3 10^3/uL (0.8-4.8) 12/02/22 03:19 Gibson # (Auto) 0.6 10^3/uL (0.2-0.9) 12/02/22 03:19 Eos # (Auto) 0.5 10^3/uL (0.0-0.8) 12/02/22 03:19 Baso # (Auto) 0.1 10^3/uL (0.0-0.1) 12/02/22 03:19 Nucleated RBC % (auto) 0 % 12/02/22 03:19 Nucleated RBCs # 0.0 /100WBC 12/02/22 03:19 Sodium 139 mmol/L (136-145) 12/02/22 03:19 Potassium 4.1 mmol/L (3.5-5.1) 12/02/22 03:19 Chloride 108 mmol/L (98-107) H 12/02/22 03:19 Carbon Dioxide 23 mmol/L (22-29) 12/02/22 03:19 Anion Gap 12.1 (5-19) 12/02/22 03:19 BUN 22 mg/dL (8-23) 12/02/22 03:19 Creatinine 0.9 mg/dL (0.7-1.2) 12/02/22 03:19 GFR Calculation 83.9 mL/min (90-130) L 12/02/22 03:19 Glucose 84 mg/dL (65-115) 12/02/22 03:19 POC Glucose 92 mg/dL (70-110) 12/01/22 06:20 Calculated Osmolality 291 mOsm/kg (285-295) 12/02/22 03:19 Calcium 8.9 mg/dL (8.5-10.5) 12/02/22 03:19 Vitals Last Vital Signs Temp 97.8 F 12/02/22 03:49 Pulse 54 L 12/02/22 05:52 Resp 16 12/02/22 03:49 BP 131/71 12/02/22 03:49 Pulse Ox 97 12/02/22 03:49 O2 Del Method Room Air 12/02/22 03:49 Discharge Plan Discharge Patient Disposition: Home Prescriptions: New clopidogrel 75 mg Tablet 75 mg PO DAILY Qty: 90 3RF aspirin 81 mg Tablet,Delayed Release (Dr/Ec) 81 mg PO DAILY Qty: 90 3RF No Action herbal drugs Tablet 1 tab PO DAILY Discharge Orders: Discharge Order (Routine); Ordered 12/02/22 Ordered By: Clint Tellez Referrals: Shaista Arana FNP [Nurse Practitioner] - 12/08/22 10:45 am (Please follow-up Shaista Arana on on December 08 at 10:45a.m. If you have any questions or need to reschedule. Please call ) Diet: Cardiac Activity: Increase activity as tolerated Patient Instructions: Aspirin (By mouth) (Lana Extra Strength, Lana Aspirin [facility],..., Clopidogrel (By mouth) (Plavix), Coronary Artery Disease (DC), Post Angiogram Home Care Instructions Discharge Date/Time: 12/02/22 11:05 Discharge Attestations Time Spent in Discharge Care*: greater than 30 min Quality Metrics Clinical Quality Measures [ No reported AMI, CVA or VTE this stay] Coding Level of Care Code Acute Code for Chg Fwd Diagnoses CAD (coronary artery disease) of artery bypass graft I25.708 [place] vs. transplanted heart: [place] heart Associated angina: with stable angina
[2022-12-02 07:42] VITALS: BP 128/75; PULSE 58; RESP 16; O2SAT 97
[2022-12-02] MEDS: clopidogrel 75 mg Tablet PO (08:44)
[2022-12-02] MEDS: aspirin 81 mg EC Tablet PO (08:44)
[2022-12-02 10:15] VITALS: BP 122/68; PULSE 58; RESP 17; O2SAT 98
[2022-12-02 10:21] VITALS: BP 122/68; PULSE 58; RESP 17; O2SAT 98
--- NOTE | 2022-12-02 11:03 | PC.NURSE ---
discharge instructions given and explained...especially the importance of taking plavix everyday.pt verb understanding of instructions.discharged to waiting area per pt request,at this time.
== END 2022-12-02 11:05 | disposition home or self-care (01) ==
LOC: CCL 06:05 → CSU 10:31
PROVIDERS: PCP Nurse Practitioner Family; Visit Provider Internal Medicine
DX: I25.708 Atherosclerosis of coronary artery bypass graft(s), unspecified, with other forms of angina pectoris (principal); I10 Essential (primary) hypertension; Z95.1 Presence of aortocoronary bypass graft; E78.5 Hyperlipidemia, unspecified
CPT/HCPCS: 36415; 36416; 80048; 82962; 85025; 85347; 93455; 96365; 99152; 99153; C1760; C1769; C1874; C1887; C1894; C9600; J1644; J2250; J3010; J7030; Q0163; Q9967

== ENCOUNTER → 2022-12-08 09:39 | Outpatient (BNVA) | payer MEDICARE, BC, SELFPAY | PROVIDERS: PCP Nurse Practitioner Family; Visit Provider Nurse Practitioner Family | DX: I25.708 Atherosclerosis of coronary artery bypass graft(s), unspecified, with other forms of angina pectoris (principal); I11.0 Hypertensive heart disease with heart failure; I50.9 Heart failure, unspecified | CPT/HCPCS: 36415; 80048; 99214 ==

== ENCOUNTER → 2023-07-29 15:16 | Outpatient (BNVA) | payer MEDICARE, BC, SELFPAY | PROVIDERS: PCP Nurse Practitioner Family; Visit Provider Internal Medicine Cardiovascular Disease | DX: I25.10 Atherosclerotic heart disease of native coronary artery without angina pectoris (principal); I44.0 Atrioventricular block, first degree; I10 Essential (primary) hypertension; E11.69 Type 2 diabetes mellitus with other specified complication; E78.5 Hyperlipidemia, unspecified; I51.9 Heart disease, unspecified | CPT/HCPCS: 93005; 99214 ==

== ENCOUNTER 2023-11-25 07:59 | Outpatient (CLI) | payer MEDICARE, BC, SELFPAY ==
--- NOTE | 2023-11-25 | ECG_ITS ---
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 Interpretive Statements NAME OF STUDY: EXERCISE SESTAMIBI STRESS TEST INDICATION: ASHD RESULTS TO DEDRA SQUIRES PROCEDURE: The baseline electrocardiogram showed sinus bradycardia with a poor R wave progression. Nonspecific IVCD. At the baseline, the patient's blood pressure was mm Hg with a heart rate of. The patient exercised for 8 minutes and 37 seconds on a standard Per protocol. Patient attained a maximum heart rate of 136 beats per minute(90% of the maximum predicted heart rate) with a blood pressure at the peak exercise of 157/79 mm Hg. The EKG at the peak exercise revealed no significant changes. Patient did not have any chest pain or any significant arrhythmis with the exercise Sestamibi was injected 1 minute prior to the peak exercise During the recovery phase, there were no new changes. Blood pressure at the end of the recovery phase was 138/87 mm Hg with a heart rate of 74 per minute. CONCLUSION: 1. No significant EKG changes with the treadmill exercise 2. No exercise-induced chest pain or cardiac arrhythmia 3. Fair impaired exercise tolerance, attained a maximum of 10.2 METs 4. Sestamibi/Sestamibi perfusion results pending; see separate report. Electronically Signed On 11-29-2023 22:50:18 CDT by Jyotsna Tate M.D. [id number]
[2023-11-25 08:11] VITALS: BMI 29.0
--- NOTE | 2023-11-25 08:19 | NMCV_ITS ---
PA jeovanny perf SPECT r/s* [id number] Omar Redding Age: 67 Gender: M : 1955 Exam Date: 11/25/2023 09:07 Ordering Phys: Jyotsna Tate MD ([email or web address]) Technologist: RACHID Boles Exam Location: [facility] Indications: ATHEROSCLEROTIC HEART DISEASE STRESS TEST Please see separate stress test report in [facility] for full findings IMAGE PROTOCOL Rest/Stress 1 Exercise Day Radiopharmaceutical Dose (mCi) Administration Site Administered by Rest: Tc-99m 10.7 IV RACHID Boles Sestamibi Stress:Tc-99m 32.5 IV RACHID Baum Sestamibi Rest: 25-Nov-2023 60 Discovery 630 Stress: 25-Nov-2023 30 Discovery 630 Radiopharmaceutical was injected at 88 % maximum heart rate. Images obtained in supine and prone position. SPECT RESULTS Technical Quality: Excellent Raw Data Analysis: Normal Image Corrections: No attenuation or motion correction applied Summed Stress Score: 27 Summed Rest Score: 28 Summed Difference Score: 1 PERFUSION FINDINGS Moderate to severely decreased tracer uptake involving the anterior, anteroseptal, all the apical and apical inferior segments. No significant reversibility was noted in these regions. A small area of slightly decreased aseptic was noted in the mid inferior wall region with some reversibility FUNCTIONAL RESULTS (calculated via Gated SPECT) Stress Image LV EF (%): 36 Stress EDV (mL):265 TID: 1.13 Stress ESV (mL):170 FUNCTIONAL FINDINGS: Segmental wall motion analysis revealed a severe diffuse hypokinesia of the septum, inferior wall and the apex. IMPRESSIONS 1. Myocardial perfusion imaging revealing a large area of moderate to severely decreased persistent tracer uptake involving the anterior, anteroseptal and apical regions, suggesting extensive myocardial scarring involving the distribution of the left and descending artery with some involvement of the circumflex artery. Asmall area of minimal reversibility in the mid inferior wall region, may suggest ischemia in the distribution of the right coronary artery. 2. Moderately diminished left ventricular ejection fraction of 36%. 3. Multiple wall motion abnormalities as mentioned above. 4. Moderately dilated LV cavity with an end-systolic volume of 170 mL Compared to the study from 11/09/2022 the small area of minimal ischemia in the mid inferior wall appears to be new Dr Jyotsna Tate MD [facility] (Electronically Signed) Final Date: 26 Nov 2023 08:31 S
[2023-11-25 10:23] VITALS: BP 153/84; PULSE 77
== END 2023-11-25 08:00 | disposition home or self-care (01) ==
PROVIDERS: PCP Nurse Practitioner Family; Visit Provider Internal Medicine Cardiovascular Disease
DX: I25.10 Atherosclerotic heart disease of native coronary artery without angina pectoris (principal); I50.1 Left ventricular failure, unspecified; R93.1 Abnormal findings on diagnostic imaging of heart and coronary circulation
CPT/HCPCS: 36415; 78452; 93017; A9500

== ENCOUNTER 2023-12-08 06:46 | Outpatient (CLI) | payer MEDICARE, BC, SELFPAY ==
--- NOTE | 2023-12-08 07:00 | USCV_ITS ---
Omar Redding Age: 67 Gender: M : 1955 Exam Date: 12/08/2023 06:50 Ordering Phys: Jyotsna Tate MD ([email or web address]) Technologist: [place]am [place] [facility] [place]: hx of mi cva BP: 120 / 70 HR: 75 Rhythm: Sinus Technical Quality: Adequate MEASUREMENTS (Male / Female) Normal Values 2D ECHO LV Diastolic Diameter PLAX 5.7 cm 4.2 - 5.9 / 3.9 - 5.3 cm IVS Diastolic Thickness 1.0 cm 0.6 - 1.0 / 0.6 - 0.9 cm IVS Systolic Thickness 1.4 cm LVPW Diastolic Thickness 1.2 cm 0.6 - 1.0 / 0.6 - 0.9 cm LVPW Systolic Thickness 1.3 cm LVOT Diameter 2.0 cm LV Ejection Fraction 2D Teich 35.8 % LV Ejection Fraction MOD 2C 44.3 % LV Ejection Fraction 2C AL 45.4 % LA Diameter 4.6 cm RA Systolic Volume 4C AL 67.2 ml RA Systolic Volume 4C MOD 67.3 ml LA Sys Volume AL 78.3 cm cubed LA Sys Volume Index AL 40.3 cm cubed/m squared Aorta at Sinotubular Diameter 2.3 cm IVC Diameter 1.9 cm M-MODE LA Ao Ratio MM 1.0 AV Cusp Separation MM 2.2 cm DOPPLER AV Peak Velocity 97.0 cm/s LVOT Peak Velocity 63.0 cm/s AV Area Cont Eq vti 2.1 cm squared AV Area Cont Eq pk 2.1 cm squared MV Peak Velocity 78.0 cm/s MV Area PHT 4.5 cm squared Mitral E to A Ratio 1.8 TR Peak Velocity 107.0 cm/s TR Peak Gradient 4.6 mmHg TV Peak E Velocity 128.0 cm/s Right Atrial Pressure 3.0 mmHg Pulmonary Artery Systolic Pressu 7.6 mmHg PV Peak Velocity 88.0 cm/s FINDINGS Left Ventricle Severe diffuse hypokinesia of the septum, anteroseptum and LV apex mild diffuse hypokinesia of the lateral wall. Moderately dilated LV cavity.Grade III/IV diastolic dysfunction (restrictive filling pattern), severely elevated filling pressures. LV ejection fraction is around 36%. Right Ventricle The right ventricle is normal in size and function. Right Atrium The right atrium is normal in size. Left Atrium Moderate to severely increased left atrial size. The left atrial end-systolic volume index was 41 mL/m squared Mitral Valve Mild-moderate mitral valve regurgitation. Aortic Valve Minimally thickened Tricuspid Valve No gross abnormalities noted Pulmonic Valve No gross abnormalities noted Pericardium Normal pericardium without effusion. Aorta Normal ascending aorta dimension. IVC Normal inferior vena cava. CONCLUSIONS Severe diffuse hypokinesia of the septum, anteroseptum and LV apex mild diffuse hypokinesia of the lateral wall. Moderately dilated LV cavity.Grade III/IV diastolic dysfunction (restrictive filling pattern), severely elevated filling pressures. LV ejection fraction is around 36%( visual) Moderate to severely increased left atrial size. Mild-moderate mitral valve regurgitation. Minimally thickened aortic valve There is no pericardial effusion. There are no intracardiac masses. Compared to the study from 09/01/2022, there is slight worsening of the LV systolic function Dr Jyotsna Tate MD [facility] (Electronically Signed) Final Date: 10 December 2023 11:20 S
== END 2023-12-08 06:47 | disposition home or self-care (01) ==
LOC: RAD 06:46
PROVIDERS: PCP Nurse Practitioner Family; Visit Provider Internal Medicine Cardiovascular Disease
DX: R94.39 Abnormal result of other cardiovascular function study (principal); I51.7 Cardiomegaly; I34.0 Nonrheumatic mitral (valve) insufficiency; I35.8 Other nonrheumatic aortic valve disorders; I51.89 Other ill-defined heart diseases
CPT/HCPCS: 93306

== ENCOUNTER 2023-12-17 13:36 | Outpatient (CLI) | payer MEDICARE, BC, SELFPAY ==
[2023-12-17 14:11] LABS: Basophils # 0.1 10^3/uL (0.0-0.1); Basophils % 0.7 %; Eosinophils # 0.2 10^3/uL (0.0-0.8); Hematocrit 45.5 % (37-53); Lymphocytes # 2.1 10^3/uL (0.8-4.8); Lymphocytes % 27.8 %; Mean Corpuscular HGB Conc 33.4 g/dL (30-55); Mean Corpuscular Hemoglobin 30.7 pg (27-33); Mean Corpuscular Volume 91.9 fl (82-101); Mean Platelet Volume 11.1 fL (7.4-10.4); Monocytes # 0.7 10^3/uL (0.2-0.9); Monocytes % 9.5 %; Neutrophils # 4.39 10^3/uL (1.8-7.7); Neutrophils % 58.9 %; Nucleated Red Blood Cells % 0 %; Platelet Count 208 10^3/cmm (157-399); Red Blood Count 4.95 10^6/uL (3.85-5.65); White Blood Count 7.45 10^3/uL (3.29-11.43)
[2023-12-17 14:21] LABS: INR 0.97 (0.8-1.2)
[2023-12-17 14:25] LABS: Alanine Aminotransferase 19 U/L (0-41); Albumin Level 4.1 g/dL (3.5-5.2); Alkaline Phosphatase 56 U/L (40-130); Anion Gap 16.3 (5-19); Aspartate Amino Transferase 27 U/L (0-40); Blood Urea Nitrogen 26 mg/dL (8-23); Calcium 9.3 mg/dL (8.5-10.5); Carbon Dioxide 25 mmol/L (22-29); Chloride 102 mmol/L (98-107); Globulin 3.2 g/dL (1.3-4.6); Glomerular Filtration Rate 46.4 mL/min (90-130); Glucose 91 mg/dL (65-115); Osmolality Calculated 292 mOsm/kg (285-295); Potassium 4.3 mmol/L (3.5-5.1); Sodium 139 mmol/L (136-145); Total Bilirubin 0.5 mg/dL (0.15-1.2); Total Protein 7.3 g/dL (6.6-8.7)
== END 2023-12-17 13:37 | disposition home or self-care (01) ==
LOC: LAB 13:39
PROVIDERS: PCP Nurse Practitioner Family; Visit Provider Internal Medicine Cardiovascular Disease
DX: I10 Essential (primary) hypertension (principal); R94.39 Abnormal result of other cardiovascular function study; I25.10 Atherosclerotic heart disease of native coronary artery without angina pectoris
CPT/HCPCS: 80053; 85025; 85610; 86850; 86900

== ENCOUNTER → 2023-12-21 14:14 | Outpatient (BNVA) | payer MEDICARE, BC, SELFPAY | PROVIDERS: PCP Nurse Practitioner Family; Visit Provider Internal Medicine Cardiovascular Disease | DX: I11.0 Hypertensive heart disease with heart failure (principal); I50.9 Heart failure, unspecified; I25.10 Atherosclerotic heart disease of native coronary artery without angina pectoris; I25.5 Ischemic cardiomyopathy; E11.69 Type 2 diabetes mellitus with other specified complication; E78.5 Hyperlipidemia, unspecified; N28.9 Disorder of kidney and ureter, unspecified | CPT/HCPCS: 99214 ==

== ENCOUNTER 2023-12-27 14:23 | Outpatient (CLI) | payer MEDICARE, BC, SELFPAY ==
[2023-12-27 14:53] LABS: Blood Urea Nitrogen 23 mg/dL (8-23); Calcium 10.1 mg/dL (8.5-10.5); Carbon Dioxide 24 mmol/L (22-29); Chloride 104 mmol/L (98-107); Glomerular Filtration Rate 74.1 mL/min (90-130); Glucose 81 mg/dL (65-115); Osmolality Calculated 293 mOsm/kg (285-295); Sodium 140 mmol/L (136-145)
[2023-12-27 14:54] LABS: Anion Gap 16.5 (5-19); Potassium 4.5 mmol/L (3.5-5.1)
== END 2023-12-27 14:24 | disposition home or self-care (01) ==
LOC: LAB 14:24
PROVIDERS: PCP Nurse Practitioner Family; Visit Provider Internal Medicine Cardiovascular Disease
DX: R06.02 Shortness of breath (principal)
CPT/HCPCS: 36415; 80048

== ENCOUNTER 2024-01-17 06:09 | Outpatient (CLI) | payer MEDICARE, SELFPAY ==
[2024-01-17] VITALS (42 sets, daily range): BP systolic 110–171; BP diastolic 59–107; PULSE 0–74; RESP 10–27; TEMP 36.2–36.9; O2SAT 95–97; BMI 27.3
[2024-01-17] MEDS: diphenhydrAMINE 50 mg Capsule PO (06:20)
[2024-01-17] MEDS: aspirin 325 mg Tablet PO (06:20)
--- NOTE | 2024-01-17 07:00 | XACV_ITS ---
Exam Room: 2 Ht: 170 cm Wt: 79 kg BSA: 1.95 m2 Gender: Male : 1955 Any Known Allergies: Penicillins Exam Priority: Routine Procedure(s): Procedure Description: Diagnostic procedure Procedure Description: Left Heart Catheterization Procedure Description: Left ventriculography Procedure Description: Venous Graft Catheterization Procedure Description: LEMUS Graft Catheterization Procedure Description: Coronary Angiography Bebeto STRAUSS; Diagnostic Cath Status: Elective Diagnostic Findings * The left main is a medium caliber vessel with mild diffuse disease. * The left anterior descending artery is flush occluded at the ostium. * The left circumflex artery was found to have moderate to severe diffuse disease proximally. There is subtotal occlusion of the ostium of the first obtuse marginal artery. Right after the origin of the recurrent atrial branch, there was a 50% gnosis in the circumflex proper. Right after the first OM branch, there was another 50 to 60% stenosis in the circumflex artery.. * The right coronary artery is totally occluded at the ostium. * The venous graft to the obtuse marginal artery was found to be widely patent. The distal anastomosis was to one of the branches of the first obtuse marginal artery. There was found to be a high-grade stenosis at the bifurcation, extending into the branches.. * The 70 venous graft to the right coronary artery was found to be patent. The proximal end of the graft was found to have moderate diffuse disease. The stent extending from the distal end of the graft into the proximal segment of the PLV branch was found to be widely patent. Relatively small caliber vessel, appears to be the PDA branch has a high-grade ostial stenosis, a jailed lesion. The PLV branch appears to be bifurcating distally. Moderate diffuse disease was noted. * The LEMUS to the LAD was found to be widely patent. The mid and distal LAD was found to have mild diffuse disease. No significant stenotic lesions were noted. Conclusions 1. 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 The Perfusion scan revealed areas of fixed defects with a small areas of reversible defect suggesting myocardial scarring with ischemia. His LV ejection fraction was around 36% a significant drop from the previous ejection fraction. In view of his abnormal findings, in order to further evaluate the coronary status as well as the graft status, a cardiac catheterization was recommended. Patient underwent left heart catheterization with left and right coronary angiogram, LV angiogram and graft angiogram today. The findings are as follows. 2. Mild diffuse disease left main. Flush occlusion of the left and descending artery at the ostium. Subtotal occlusion of the first obtuse marginal branch. Moderate diffuse disease in the proximal and the mid circumflex artery. Total occlusion of the right coronary artery at the ostium. Patent saphenous venous graft to the OM branch, right coronary artery and LEMUS to the LAD. Moderate to severe diffuse disease in circumflex artery and right coronary artery, distal to the anastomosis. LV ejection fraction of 30%. LVEDP of 18 mmHg. I reviewed and discussed the angiogram with the Dr. Jane. The lesions in the [place] vessels were found to be not amenable for intervention. So it was decided to optimize the medical treatment. Diagnostic RX Recommendation: medical therapy and/or counseling Ventriculography Ejection Fraction: 30.0 % Left Ventriculography Findings: * The LV gram was performed in the DONG position. The LV cavity appears to be mildly dilated. There was moderate diffuse hypokinesia of the left ventricle. LV ejection fraction was around 30%. LVEDP was 18 mmHg. Mild mitral regurgitation was noted. No filling defects were noted. Pressures Phase:Rest AO : 124 / 66 ( 90 ) @ 8:33:00 AM 94 / 67 ( 81 ) @ 8:38:00 AM 137 / 49 ( 88 ) @ 8:48:00 AM 136 / 64 ( 89 ) @ 8:48:00 AM LV : 132 / 2 / 18 @ 8:47:00 AM 126 / 2 / 20 @ 8:48:00 AM 126 / 2 / 19 @ 8:48:00 AM Valves Phase:DefaultPhase AV : 0.0 @ 8:00:33 AM 0.0 @ 8:00:33 AM AV Mean Gradient: 0.0 @ 8:00:33 AM 0.0 @ 8:00:33 AM Clinical Evaluation EBL: 5mL-10mL Procedural Details Pre-Procedure Time Out. Identified patient by full name and date of as verbalized by the patient/guarantor. Does the consent match the physician's order: Yes. Accurate & Complete Informed Consent: Yes. Inpatient/Outpatient History & Physical on Chart: Yes. If H&P is completed, is and addenduem needed: No; If yes, is the addendum complete: N/A. Visualize and Verify Site with Patient/Guarantor: N/A. Relevant Radiology Images available: Yes. Pre-op teaching completed and patient verbalized understanding. Pre-op teaching completed and patient verbalized understanding. The risks, benefits, and alternatives of sedation and/or procedure were discussed by physician. The patient agrees to continue. Procedure started. Physician arrived. [facility] Clinical Fraility Score: 3: Managing Well. Senior Cytogenetic Technologist Indications: Worsening Angina. Chest Pain Symptom Assessment: Atypical Angina. Correct patient, site and procedure confirmed by cath team. Current diagnosis: Chest Pain. PERRLA. Strong, equal hand corporate compliance manager bilaterally. Lungs clear x 5 lobes. IV Site on Arrival: 20 gauge in the left hand. IV Fluids: 0.9% NaCl at KVO. 0 mL infused prior to label drier. Pre Procedural Pulses: bilateral dorsalis pedis was 3+. Pre Procedural Pulses: bilateral posterior tibial was 3+. Pre Procedural Pulses: bilateral radial was 3+. Oxygen started at 2liters/min via nasal canula. bilateral groins was prepped with chloroprep then draped in the usual sterile fashion. Baseline sample Acquired. HR: 125 BPM. Current Diagnosis : Chest Pain. Physician scrubbed in. Immediate Pre-Procedure Time Out. Correct Patient: Yes; Correct Procedure: Yes; Correct Site: Yes; Correct Patient Position: Yes; Correct Supplies: Yes; Dried Flammable Prep: Yes; Blood Products Available: N/A;. Lidocaine 1% infiltrated to the right groin. Arterial access obtained with micropuncture set. A 5 malay JL4 catheter in over wire. Multiple views taken of left coronary artery. Catheter removed over the standard wire. A 5 malay JR4 catheter in over wire. A view taken of right coronary artery. SVG's to OM visualized and patent. SVG's to RCA visualized and patent. LEMUS to LAD visualized. Dr. Jnae called to review films. Catheter removed over the standard wire. A 5 malay Angled Pig catheter in over wire. EDP Sample taken: LV 132/2,18; HR: 84 BPM; SpO2: 98%. LV gram performed in DONG @ 10 mL/second for a total of 30 mL. EDP Sample taken: LV 126/2,20; HR: 75 BPM; SpO2: 98%. Pullback taken: LV 126/2,19; AO 137/49(88); Mean: 0mmHg, Peak to Peak: 0mmHg, SEP: 23sec/min; HR: 73 BPM; SpO2: 98%. Catheter removed over the standard wire. Physician scrubbed out. Dr. Jane arrived. Catheter attached to heparnized saline flush at KVO to maintain patency. A Suture was successful obtaining hemostatsis at the Right Femoral artery insertion site. Arterial sheath flushed and connected to tranducer and pressure bag with heparinized saline. Post Procedure: Pulses reassessed and unchanged. PERRLA. Strong, equal hand corporate compliance manager bilaterally. No VTE prophylaxis required. Medication's Wasted: Lidocaine 1% = 10 mL. Medication's Wasted: Heparin = 2500 units. Medication's Wasted: Other = Fentanyl 25mcg Versed 1 mg. Total IV fluids: 50 mL. Vital chart was stopped. Complications: None. Estimated blood loss: 5mL-10mL. Responsiveness - Normal response to verbal stimuli; alert and oriented, PERRLA. Airway - Unaffected, no intervention required; spontaneous ventilation. Circulation: W/N/L, pulses unchanged. Nausea/Vomiting: No. Procedure completed. Patient transferred by bed to 1st floor. Access Site Site: Right Femoral artery Sheath Size: 5 Fr Hemostasis Method: Suture Hemostasis Success: Successful Procedure Medications Start: 7:19 AM Stop: 7:19 AM Medication: Versed Amount: 1 mg Route: I.V. Start: 7:19 AM Stop: 7:19 AM Medication: Fentanyl Amount: 50 mcg Route: I.V. Start: 7:27 AM Stop: 7:27 AM Medication: Versed Amount: 1 mg Route: I.V. Start: 7:30 AM Stop: 7:30 AM Medication: Fentanyl Amount: 25 mcg Route: I.V. Start: 7:35 AM Stop: 7:35 AM Medication: Versed Amount: 1 mg Route: I.V. Start: 7:36 AM Stop: 7:36 AM Medication: Heparin Amount: 1500 units Route: I.V. I, the attending physician, have reviewed and verified all procedure medications. Yes, all medications given per verbal order History/Risk Factors Hypertension: Yes Dyslipidemia: Yes Peripheral Arterial Disease (PAD): No Myocardial Infarction ([place]): No Obesity: No Renal Disease: No Prior Interventions PCI: Yes CABG: Yes Valve Surgery: No Date of PCI: 12/01/2022 Report Signatures Finalized by Dr Jyotsna Tate MD [facility] on 01/18/2024 06:48 AM
[2024-01-17 07:02] LABS: Basophils # 0.1 10^3/uL (0.0-0.1); Basophils % 1.2 %; Eosinophils # 0.3 10^3/uL (0.0-0.8); Eosinophils % 4.2 %; Hematocrit 49.4 % (37-53); Lymphocytes # 2.5 10^3/uL (0.8-4.8); Mean Corpuscular HGB Conc 32.8 g/dL (30-55); Mean Corpuscular Volume 94.5 fl (82-101); Mean Platelet Volume 11.5 fL (7.4-10.4); Monocytes # 0.7 10^3/uL (0.2-0.9); Monocytes % 9.3 %; Neutrophils # 3.72 10^3/uL (1.8-7.7); Nucleated Red Blood Cells % 0 %; Platelet Count 233 10^3/cmm (157-399); Red Blood Count 5.23 10^6/uL (3.85-5.65); Red Cell Distribution Width 13.4 % (12.1-15.1)
[2024-01-17 07:11] LABS: Anion Gap 16.3 (5-19); Blood Urea Nitrogen 25 mg/dL (8-23); Calcium 9.2 mg/dL (8.5-10.5); Carbon Dioxide 24 mmol/L (22-29); Chloride 101 mmol/L (98-107); Creatinine Clr Calc Pharmacy 69.4279; Glomerular Filtration Rate 73.9 mL/min (90-130); Glucose 95 mg/dL (65-115); Osmolality Calculated 288 mOsm/kg (285-295); Potassium 4.3 mmol/L (3.5-5.1); Sodium 137 mmol/L (136-145)
--- NOTE | 2024-01-17 07:16 | W.PM.OPSUD ---
Surgery/Procedure H&P Update DATE OF PROCEDURE: January 17, 2024 DATE H&P PERFORMED: 12/21/23 H&P UPDATE INFORMATION: I have reviewed H&P completed within last 30 days, I have examined patient prior to procedure and No changes to prior documentation PREOP DIAGNOSIS: ASHD PRIMARY INDICATION FOR PROCEDURE: Abnormal Myocardial perfusion imaging/worsening LV systolic function by echocardiogram PLANNED PROCEDURE: Operation Date: 01/17/24 07:00 Proposed Procedures p Cardiac Catheterization(Left) - Jyotsna Tate MD PATIENT REASSESSED PRIOR TO SEDATION, WITH NO CHANGE NOTED: Yes PHYSICAL EXAM: alert, oriented x 3, clear to auscultation bilaterally and regular rate & rhythm AIRWAY EVAL/ANESTHESIA PLAN: normal airway, see other exam findings, ASA III, Monitored Anesthesia, Local Anesthesia, Risks, benefits & alternatives of sedation and/or procedure discussed and Patient agrees to continue as planned
--- NOTE | 2024-01-17 10:35 | PC.NURSE ---
sheath removed explained procedure to pt and . Removed 5 Fr arterial sheath on right femoral artery. manual pressure held for 20 mins. no hematoma, increase bleeding or any bleeding during removal, pedal pulses are palpated +3. activity restrictions educated to pt such as no bending on right knee, no lifting on right leg, to notify nurse for bleeding, unusual pain or numbness to right groin and leg. call light provided to pt.
--- NOTE | 2024-01-17 18:25 | P.PN_ITS ---
Subjective 2 Subjective: Patient was admitted to hospital following his cardiac catheterization for monitoring. The arterial sheath from the right groin was removed. He did not have any hematoma bleeding at the artery puncture site. Has been ambulating on telemetry with no specific symptoms. The angiogram revealed He was found to have an LV ejection fraction of around 30% by LV gram. Patent venous grafts and LEMUS to the LAD. Progression of disease in the [place] vessels. Medications: Medication Review Details: Current Medications Acetaminophen (Acetaminophen 325 Mg Tablet) 650 mg PO Q6H PRN PRN Reason: MILD PAIN Al Hydrox/Mg Hydrox/Simethicone (Cxen-Hep-Pfzdjotgn-Carlos 30 Ml Udc) 30 ml PO Q15M PRN PRN Reason: INDIGESTION Alprazolam (Alprazolam 0.5 Mg Tablet) 0.25 mg PO TID PRN PRN Reason: ANXIETY Aspirin (Aspirin 81 Mg Ec Tablet) 81 mg PO DAILY [facility] Last Admin: 01/17/24 13:25 Dose: Not Given Atropine Sulfate (Atropine 1 Mg/Ml Sdv 1 Ml) 0.5 mg IVP PRN PRN PRN Reason: Symptomatic bradycardia Sodium Chloride (Sodium Chloride 0.9%) 1,000 mls @ 50 mls/hr IV .Q20H ONE Stop: 01/18/24 01:59 Last Admin: 01/17/24 06:50 Dose: Not Given Magnesium Hydroxide (Magnesium Hydroxide 30 Ml Udc) 30 ml PO DAILY PRN PRN Reason: CONSTIPATION Naloxone HCl (Naloxone 0.4 Mg/Ml Sdv) 0.1 mg IVP Q2M PRN PRN Reason: RESPIRATORY RATE < 8/MIN Nitroglycerin (Nitroglycerin 0.4 Mg Sublingual Tablet) 0.4 mg SUBLINGUAL Q5M PRN PRN Reason: CHEST PAIN Non-Formulary Medication (Herbal Drugs) 1 tab PO DAILY [facility] Last Admin: 01/17/24 10:01 Dose: Not Given Temazepam (Temazepam 15 Mg Capsule) 15 mg PO BEDTIME PRN PRN Reason: INSOMNIA Vitals/I&O/Wt Last Vital Signs Temp 97.1 F L 01/17/24 17:02 Pulse 70 01/17/24 12:49 Resp 21 H 01/17/24 12:49 BP 120/73 01/17/24 17:02 Pulse Ox 95 01/17/24 08:31 O2 Del Method Room Air 01/17/24 12:49 01/17/24 01/17/24 01/17/24 06:59 14:59 22:59 Intake Total 480 / 480 360 / 840 Output Total 600 / 600 600 / 1200 Balance -120 / -120 -240 / -360 Weight last 48 hrs Weight 175 lb Physical Exam 2 Narrative: GENERAL: The patient is alert and oriented times three. Not in any acute distress. HEENT: No significant pallor, icterus or lymphadenopathy.Oral cavity: There are no mucous membrane lesions. NECK: Trachea appears to be central. No masses noted. No JVD or thyromegaly appreciated. RESPIRATORY: Chest is symmetrical. No intercostals muscle retraction or any accessory muscle activation. There is no chest wall tenderness. Breath sounds are heard bilaterally. No rales or rhonchi heard. No evidence of any consolidation. BREASTS: Deferred. HEART: The heart sounds are normal. No S3 or S4. No significant murmurs. No pericardial rub ABDOMEN: No vessel pulsations or distention. No tenderness. No organomegaly appreciated. Bowel sounds are normally heard. : Deferred. RECTAL: Deferred. LYMPHATIC: No lymphadenopathy noted in the neck. EXTREMITIES: No edema or cyanosis. No clubbing. MUSCULOSKELETAL: No acute joint deformities or swelling SKIN: There are no significant rashes or ecchymosis NEUROPSYCHIATRIC: The patient is alert and oriented x3. Appears to be in a good mood. No tremors or rigidity noted. Data 01/17/24 06:35 01/17/24 06:35 Other Labs: Laboratory Last Values WBC 7.30 10^3/uL (3.29-11.43) 01/17/24 06:35 RBC 5.23 10^6/uL (3.85-5.65) 01/17/24 06:35 Hgb 16.20 g/dL (11.27-16.99) 01/17/24 06:35 Hct 49.4 % (37-53) 01/17/24 06:35 MCV 94.5 fl (82-101) 01/17/24 06:35 MCH 31.0 pg (27-33) 01/17/24 06:35 MCHC 32.8 g/dL (30-55) 01/17/24 06:35 RDW 13.4 % (12.1-15.1) 01/17/24 06:35 Plt Count 233 10^3/cmm (157-399) 01/17/24 06:35 MPV 11.5 fL (7.4-10.4) H 01/17/24 06:35 Neut % (Auto) 51.0 % 01/17/24 06:35 Lymph % (Auto) 34.0 % 01/17/24 06:35 Yates % (Auto) 9.3 % 01/17/24 06:35 Eos % (Auto) 4.2 % 01/17/24 06:35 Baso % (Auto) 1.2 % 01/17/24 06:35 Neut # (Auto) 3.72 10^3/uL (1.8-7.7) 01/17/24 06:35 Lymph # (Auto) 2.5 10^3/uL (0.8-4.8) 01/17/24 06:35 Yates # (Auto) 0.7 10^3/uL (0.2-0.9) 01/17/24 06:35 Eos # (Auto) 0.3 10^3/uL (0.0-0.8) 01/17/24 06:35 Baso # (Auto) 0.1 10^3/uL (0.0-0.1) 01/17/24 06:35 Nucleated RBC % (auto) 0 % 01/17/24 06:35 Nucleated RBCs # 0.0 /100WBC 01/17/24 06:35 Sodium 137 mmol/L (136-145) 01/17/24 06:35 Potassium 4.3 mmol/L (3.5-5.1) 01/17/24 06:35 Chloride 101 mmol/L (98-107) 01/17/24 06:35 Carbon Dioxide 24 mmol/L (22-29) 01/17/24 06:35 Anion Gap 16.3 (5-19) 01/17/24 06:35 BUN 25 mg/dL (8-23) H 01/17/24 06:35 Creatinine 1.0 mg/dL (0.7-1.2) 01/17/24 06:35 GFR Calculation 73.9 mL/min (90-130) L 01/17/24 06:35 Glucose 95 mg/dL (65-115) 01/17/24 06:35 Calculated Osmolality 288 mOsm/kg (285-295) 01/17/24 06:35 Calcium 9.2 mg/dL (8.5-10.5) 01/17/24 06:35 A&P Assessment and plan (1) Atherosclerosis of coronary artery of [place] heart without angina pectoris: Since there are no revascularizable lesions, optimizing the medical treatment is a plan of action. The patient is reluctant to take any medications. He is concerned about the potential side effects. Qualifiers: Coronary Disease-Associated Artery/Lesion type: [place] artery Qualified Code(s): I25.10 - Atherosclerotic heart disease of [place] coronary artery without angina pectoris (2) CHF NYHA class II (symptoms with moderately strenuous activities): Currently the heart failure is compensated. (3) Hyperlipidemia associated with type 2 diabetes mellitus: Patient refused take the medicines (4) HTN (hypertension): He is not on any antihypertensive medications at this time. Qualifiers: Hypertension type: primary hypertension Qualified Code(s): I10 - Essential (primary) hypertension (5) Ischemic cardiomyopathy: I talked about Entresto for his heart failure. Patient is wanting to have some time to think about and pray about it. Also discussed about LifeVest. Patient is not convinced about it. He will let me know later on. Plan Since he seems to be stable otherwise, he is being discharged home today. I discussed in detail with the patient and his about the cardiac arrest and findings. Patient carries a high risk for malignant ventricular arrhythmia because of the poor LV function. The need for a LifeVest was discussed. So also the need for GDMT for the LV dysfunction was discussed. Patient is wanting to hold off on all these at this time. He is very reluctant to take medications. He will let me know his decision later. He and his seems to understand the implications. Attestations 2 Medical Necessity Statement*: Patient is being discharged home today Coding Level of Care Code Acute Code for [facility] Fwd Diagnoses Atherosclerosis of [place] coronary artery of [place] heart without angina pectoris I25.10 Coronary Disease-Associated Artery/Lesion type: [place] artery CHF NYHA class II (symptoms with moderately strenuous activities) I50.9 Hyperlipidemia associated with type 2 diabetes mellitus E11.69; E78.5 Primary hypertension I10 Hypertension type: primary hypertension Ischemic cardiomyopathy I25.5
--- NOTE | 2024-01-17 19:47 | PC.NURSE ---
Discharge Note Patient discharged to home via private vehicle accompanied by . Discharge instructions reviewed with patient and/or media sales representative regarding life vest info, chf, cardiomyopathy,post angiogram home care instructions. Belongings/home medications returned.
== END 2024-01-17 19:28 | disposition home or self-care (01) ==
LOC: CCL 06:11 → CSU 08:36
PROVIDERS: PCP Nurse Practitioner Family; Visit Provider Internal Medicine Cardiovascular Disease
DX: I25.10 Atherosclerotic heart disease of native coronary artery without angina pectoris (principal); I25.82 Chronic total occlusion of coronary artery; I11.0 Hypertensive heart disease with heart failure; I50.9 Heart failure, unspecified; E11.69 Type 2 diabetes mellitus with other specified complication; E78.5 Hyperlipidemia, unspecified; I25.5 Ischemic cardiomyopathy; Z95.1 Presence of aortocoronary bypass graft
CPT/HCPCS: 36415; 80048; 85025; 93459; 96374; 96375; 99152; 99153; C1769; C1887; C1894; J1644; J2250; J3010; J7030; Q0163; Q9967

== ENCOUNTER → 2024-07-13 09:56 | Outpatient (BNVA) | payer MEDICARE, SELFPAY | PROVIDERS: PCP Nurse Practitioner Family; Visit Provider Internal Medicine Cardiovascular Disease | DX: I11.0 Hypertensive heart disease with heart failure (principal); I50.9 Heart failure, unspecified; I25.10 Atherosclerotic heart disease of native coronary artery without angina pectoris; I25.5 Ischemic cardiomyopathy; E11.69 Type 2 diabetes mellitus with other specified complication; E78.5 Hyperlipidemia, unspecified; N28.9 Disorder of kidney and ureter, unspecified; Z95.810 Presence of automatic (implantable) cardiac defibrillator; I47.20 Ventricular tachycardia, unspecified | CPT/HCPCS: 99214 ==